=== PATIENT | female | born 1955 | race Caucasian/White ===

== ENCOUNTER 2025-02-18 15:05 | Outpatient (AMB) | payer MEDICARE, BC, SELFPAY ==
--- NOTE | 2025-02-18 15:20 | HO.NEPHOV_ITS ---
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 She is 69 is of age and has been hypertension for over 25 years . She is on [place], labetalol as well as lisinopril. She does not have any hypokalemia or renal dysfunction. She has high BMI and has sleep apnea. She is not known to have any coronary artery disease, congestive heart failure, CVA, carotid stenosis, edema, proteinuria, peripheral arterial disease. She is not very good with low-sodium diet and does not take any nonsteroidal anti-inflammatories. She maintains good hydration. She has history of renal calculus as well as paroxysmal supraventricular tachycardia. Her BP control is better but still not optimal. She has H/O PE & DVT and is on anticoagulation [facility] Medical History (Updated 02/18/25 @ 15:28 by Andrea Land MD) Hypertension Depression Asthma Paroxysmal supraventricular tachycardia Mixed hyperlipidemia DM (diabetes mellitus) type II controlled with renal manifestation JOSÉ ANTONIO (obstructive sleep apnea) Allergic rhinitis Altered sensation of foot Calculus of kidney Fatty liver disease, nonalcoholic Anatomical narrow angle Spasmodic dysphonia Gout of foot Bilateral pulmonary embolism Surgical History Status post hysteroscopic ablation of endometrium History of radial keratotomy H/O eye surgery H/O colonoscopy Hx of cholecystectomy History of ankle surgery Social History (Updated 02/18/25 @ 15:20 by Kathy Mazariegos MA) Alcohol intake: never Patient Tobacco Use Status: Never used Tobacco Review of Systems Const All systems reviewed & are unremarkable except as noted in HPI and below Physical Exam Vital Signs: Last Vital Signs Pulse 69 02/18/25 15:28 BP 156/82 H 02/18/25 15:28 Pulse Ox 95 02/18/25 15:28 Oxygen Delivery Method Room Air 02/18/25 15:28 BMI result Body Mass Index 41.6 Const General: comfortable and no acute distress Orientation/consciousness: patient oriented x3 HEENT Head: Yes normocephalic Mouth: Normal oral and palatal mucosa present Eyes EOM: EOMs intact bilaterally Neck Neck: Yes supple Resp Auscultation: clear to auscultation bilaterally Cardio Jugular venous distension: no JVD Rate: regular rate GI Palpation (GI): Soft to palpation Auscultation: normal bowel sounds General: Yes no CVA tenderness Back/Spine/Pelvis Back: no CVA tenderness Skin General skin exam: no rashes or lesions noted Neuro General: patient oriented x3 and moves all extremities Extrem General: Yes no pedal edema Assessment & Plan Assessment & Plan (1) Hypertension: Code(s): I10 - Essential (primary) hypertension Category: Medical Qualifiers: Hypertension type: primary hypertension Qualified Code(s): I10 - Essential (primary) hypertension Plan Life style modifications and weight loss Low sodium diet ; C/W CPAP for JOSÉ ANTONIO Started Spironolactone 25 mg daily C/W rest of current BP medications for now Will do a 24 hr BP and renal Doppler later Unlikely that she has secondary HTN Will continue optimize medications with evol data F/U labs ordered and answered all question Orders: Orders Protein Creatinine Ratio, Ur 4 Weeks I10 - Essential (primary) hypertension Electrolytes 4 Weeks I10 - Essential (primary) hypertension Blood Urea Nitrogen 4 Weeks I10 - Essential (primary) hypertension Creatinine 4 Weeks I10 - Essential (primary) hypertension Calcium 4 Weeks I10 - Essential (primary) hypertension Coding Level of Care Code New Pt Level 4 (02960) Diagnoses Primary hypertension I10 Hypertension type: primary hypertension
[2025-02-18 15:28] VITALS: BP 156/82; PULSE 69; O2SAT 95; BMI 41.6
--- OUTSIDE RECORDS SUMMARY | 2025-02-18 19:32 | XMS_ITS | Clinical Summary ---
Author Organization [facility] Address [address] [place] [address] Phone Care Team Providers Care Club Director Name Role Phone Clemente Preston MD Primary Care Provider [phone] Allergies Active Allergy Reactions Criticality Noted Date Comments Cyclobenzaprine Diarrhea 04/04/2024 Ibuprofen 12/06/2021 Raises blood pressure Medications Lactobacillus acidophilus (ACIDOPHILUS ORAL) daily as needed. Active aspirin 81 mg EC tablet 1 tablet (81 mg total) 1 (one) time each day. Active calcium citrate-vitamin D3 1,000 mg-10 mcg /30 mL liquid Take by mouth. Active fluticasone propionate (FLONASE) 50 mcg/actuation nasal spray SPRAY 1 SPRAY BY NASAL ROUTE EVERY DAY 08/03/19 23 Active hydrocortisone 1 % topical cream Apply to affected areas twice daily. 06/09/19 23 Active ketoconazole (NIZORAL) 2 % shampoo Active lysine 500 mg tablet L-LYSINE 500 MG OR TABS 1 tab daily Active metFORMIN XR (GLUCOPHAGE-XR) 500 mg 24 hr tablet TAKE 2 TABLETS BY MOUTH DAILY (WITH BREAKFAST). 12/08/19 24 Active nystatin (Nystop) 100,000 unit/gram powder APPLY TWO TIMES A DAY NEEDED FOR RASH 10/31/19 19 Active B complex-vitamin C-folic acid 400 mcg tablet Take by mouth. Active Lacto no.51/B.animalis/i nulin (FORTIFY WOMEN PROBIOTIC ORAL) Active valACYclovir (VALTREX) 1 gram tablet TAKE 2 TABLETS BY MOUTH 2 TIMES DAILY FOR OUTBREAK OR DIRECTED 8 tablet 03/28/20 24 Active fluticasone furoate (Arnuity Ellipta) 100 mcg/actuation blister with device inhaler Inhale 1 puff by mouth 1 (one) time each day. 3 each 3 05/24/19 25 026 Active fluticasone HFA (FLOVENT HFA) 44 mcg/actuation inhalerIndications :Moderate persistent asthma, uncomplicated Inhale 2 puffs by mouth 2 (two) times a day. 10.6 each 3 07/05/19 25 Active citalopram (CeleXA) 40 mg tablet TAKE 1 TABLET BY MOUTH EVERY DAY 90 tablet 1 09/20/19 25 Active gabapentin (NEURONTIN) 300 mg capsuleIndications :Unspecified osteoarthritis, unspecified site Take 1 capsule (300 mg total) by mouth 1 (one) time each day if needed (pain). 90 capsule 1 11/09/19 25 Active lisinopriL (PRINIVIL,ZESTRIL) 20 mg tablet Take 1 tablet (20 mg total) by mouth 1 (one) time each day. 90 each 1 11/09/19 25 Active amLODIPine (NORVASC) 5 mg tablet Take 1 tablet (5 mg total) by mouth 1 (one) time each day. 90 each 1 11/09/19 25 Active pravastatin (PRAVACHOL) 40 mg tabletIndications: Mixed hyperlipidemia TAKE 1 TABLET BY MOUTH EVERYDAY AT BEDTIME 90 tablet 1 11/16/19 25 Active metFORMIN XR (GLUCOPHAGE-XR) 500 mg 24 hr tabletIndications: Type 2 diabetes mellitus with other diabetic kidney complication ([facility] V24, [facility] V28) TAKE 2 TABLETS BY MOUTH DAILY (WITH BREAKFAST). 180 tablet 2 12/13/19 25 Active labetaloL (NORMODYNE) 200 mg tablet Take 1 tablet (200 mg total) by mouth 2 (two) times a day. 60 each 3 01/09/20 25 Active mirtazapine (REMERON) 30 mg tablet Take 1 tablet (30 mg total) by mouth at bedtime. 90 tablet 1 01/10/20 25 Active Eliquis 5 mg tablet TAKE 1 TABLET BY MOUTH TWICE A DAY 60 tablet 3 02/01/20 25 Active tirzepatide (MOUNJARO) 7.5 mg/0.5 mL injectionIndicatio ns:Controlled type 2 diabetes mellitus with microalbuminuria, without long-term current use of insulin ([facility] V24, [facility] V28) Inject 0.5 mL (7.5 mg total) under the skin every 7 (seven) days. 2 mL 1 02/01/20 Active apixaban (Eliquis) 5 mg tablet Take 1 tablet (5 mg total) by mouth 2 (two) times a day. 60 tablet 3 06/03/19 25 025 Discontinued Mounjaro 5 mg/0.5 mL injectionIndicatio ns:Controlled type 2 diabetes mellitus with microalbuminuria, without long-term current use of insulin ([facility] V24, [facility] V28) INJECT 0.5 ML (5 MG TOTAL) UNDER THE SKIN EVERY 7 DAYS 2 mL 1 12/27/19 25 025 Discontinued Active Problems Problem Noted Date Diagnosed Date Bilateral pulmonary embolism ([facility] V24, [facility] V28) 04/18/2024 Gout of foot 12/06/2021 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 Completed speech therapy Anatomical narrow angle 07/31/2017 Fatty liver disease, nonalcoholic 11/29/2016 Calculus of kidney 09/05/2015 Overview (03/11/2024): Seen on u/s Altered sensation of foot 11/19/2013 Allergic rhinitis 05/25/2011 Overview (03/11/2024): Ref ENT for lesion nasal, appt not yet scheduled by pt JOSÉ ANTONIO (obstructive sleep apnea) 04/05/2011 Overview (03/11/2024): Moderate on sleep study 2010, on CPAP, sees Dr Silva Polysomnogram: RBMG 03-01-11 SE 83% SM 85% RDI 18(AHI 10.6) REM RDI 56, REM AHI 39. supine RDI 56 lateral RDI 11.9 PLMAI~10 Optimal CPAP Polysomnogram with CPAP: Date 05/09/2011 SE 93% SM 93 % RDI 0.7 (AHI 0.4), PLMAI ~1 with elimination of respiratory events and snoring; + improvement in JOSÉ ANTONIO. DM (diabetes mellitus) type II controlled with renal manifestation ([facility] V24, [facility] V28) 05/27/2009 Mixed hyperlipidemia 12/01/2007 Paroxysmal supraventricular tachycardia ([facility] V24) 10/01/2005 Overview (03/11/2024): 1997 Asthma 04/19/2005 Depression 04/19/2005 Hypertension 04/19/2005 Resolved Problems Problem Noted Date Diagnosed Date Resolved Date Hypoxic respiratory failure ([facility] V24, [facility] V28) 04/18/2024 04/20/2024 Assessment & Plan (04/18/2024 3:12 PM EST): hypertension Encounters Date Type Department Care Team Description 01/31/2025 11:00 AM EDT Office Visit Endocrinology [address] [phone] Sarah Stevens MD Controlled type 2 diabetes mellitus with microalbuminuria, without long-term current use of insulin ([facility] V24, [facility] V28) (Primary Dx) 01/21/2025 Results Follow-Up Internal Medicine - [address] [address] Aleks Penn [place] 01/08/2025 2:45 PM EDT Office Visit Internal Medicine [address] [address] Clemente Preston MD Primary hypertension (Primary Dx); PE (pulmonary thromboembolism) ([facility] V24, [facility] V28); Controlled type 2 diabetes mellitus with microalbuminuria, without long-term current use of insulin ([facility] V24, [facility] V28) 01/08/2025 11:11 AM EDT - 01/08/2025 11:59 PM EDT Hospital Encounter CT Scan [address] [place] [address] Lung nodules Discharge Disposition: Home or Self Care 12/30/2024 3:15 PM EDT Office Visit Hematology Oncology [address] [place] [phone] Regine Dunn MD Bilateral pulmonary embolism ([facility] V24, [facility] V28) (Primary Dx); Paroxysmal supraventricular tachycardia ([facility] V24) 12/24/2024 Telephone Pulmonology - [place] [address] [facility] [address] [place] [address] [place] 12/20/2024 12:45 PM EDT Lab Draw Station - [address] [address] Obstructive sleep apnea (adult) (pediatric) (Primary Dx); Fatigue; Normocytic anemia; Unspecified osteoarthritis, unspecified site; Primary hypertension; Mixed hyperlipidemia; Bilateral pulmonary embolism ([facility] V24, [facility] V28) 12/19/2024 9:29 AM EDT - 12/19/2024 11:59 PM EDT Hospital [facility] at [address] [place] [phone] Encounter for screening mammogram for breast cancer Discharge Disposition: Home or Self Care from Last 3 Months Immunizations Immunization Administration Dates Next Due COVID-19 (Pfizer/Comirnaty) 12yo and older 01/09/2025 COVID-19 Seasonal (Novavax) 12yo and older 01/12/2022 H1N1 Inj Preservative Free 05/27/2009 Hepatitis B (Xruoyub-S-Ysphd , Recombivax HB-Adult) 19yo and older 03/12/2012,10/17/2011,09/08/2011 Influenza Quadravalent, MDCK , 0.5ml, preservative free (Flucelvax) 6mo and older 02/19/2019,01/17/2018 Influenza Quadravalent, MDCK , 0.5ml, with preservative (Flucelvax) 6mo and older 01/03/2020,03/02/2017 Influenza trivalent, 0.5mL ( Fluad) 65yo and older 01/15/2024,01/10/2023,02/19/2021 Influenza trivalent, 0.5mL, preservative free (Fluarix; FluLaval; Fluzone) ages 6mo and older (Afluria) 3 years and older 01/12/2022,03/19/2008 Influenza trivalent, with pr eservative (Fluzone; Afluria) 6mo and older 02/17/2016,02/27/2015,02/25/2014,02/18,03/13/2012,03/08/2011,05/13/2010 ,12/24/2008,03/11/2005 Influenza, Unspecified 03/11/2022 Pfizer (ages 12 & older) Biv alent, COVID-19 01/12/2022 Pfizer SARS-CoV-2 COVID-19, mRNA, LNP-S, preservative free 03/21/2023,01/12/2022,02/19/2021,08/02,07/12/2020 Pneumococcal conjugate 20 va lent (Prevnar 20, PCV 20) 2mo and older 03/21/2023 Pneumococcal polysaccharide 23 valent (Pneumovax 23) 2yo and older 02/17/2016,01/29/2004 RSV, bivalent, protein subun it RSVpreF, 0.5mL, Preservative Free (ABRYSVO) 50yo and older or 32 through 36 wks of 03/21/2023 Respiratory syncytial virus (RSV), unspecified 03/21/2023 Td Tetanus diptheria (Tdvax) 7yo and older 11/19/2018 Tdap Tetanus diptheria acell ular pertussis (Boostrix; Adacel) 7yo and older 11/03/2008 Varicella live (Varivax) 12m o and older 05/12/2000 Zoster recombinant (Shingrix ) 19yo and older 06/23/2018,11/22/2017 Surgical History Surgery Date Site/Laterality Comments VAGINAL DELIVERY PROCEDURE: GA VAGINAL DELIVERY ONLY CHOLECYSTECTOMY 08/2005 PROCEDURE: HISTORICAL CHOLECYSTECTOMY ANKLE SURGERY 03/2005 PROCEDURE: HISTORICAL ANKLE SURGERY; COMMENT: fracture, right OTHER SURGICAL HISTORY PROCEDURE: HISTORY OTHER; COMMENT: D & C OTHER SURGICAL HISTORY 2011 PROCEDURE: GA HYSTEROSCOPY ENDOMETRIAL ABLATION OTHER SURGICAL HISTORY PROCEDURE: GA RADIAL KERATOTOMY COLONOSCOPY 03/31/2008 PROCEDURE: HISTORICAL COLONOSCOPY; COMMENT: Up to cecum, good preparation, mild diverticulosis, normal colon exam COLONOSCOPY 11/21/2018 PROCEDURE: HISTORICAL COLONOSCOPY; COMMENT: Minimal diverticulosis, otherwise negative examination. EYE SURGERY 2017 Bilateral PROCEDURE: GA TRABECULOPLASTY BY LASER SURGERY Medical History Medical History Date Comments Obesity, unspecified DX:Obesity, unspecified Nonspecific (abnormal) findi ngs on radiological and other examination of skull and head 1991 DX:Nonspecific (abnormal) fi ndings on radiological and other examination of skull and head; COMMENT: Pituitary MRI--followups unremarkable Depressive disorder, not els ewhere classified DX:Depressive disorder, not elsewhere classified Unspecified asthma(493.90) DX:Un specified asthma(493.90) Essential hypertension, benign D X:Essential hypertension, benign Diabetes mellitus type 2, co ntrolled, with complications (CMS/HCC V24, CMS/HCC V28) DX:Diabetes mellitus type 2, controlled, with complications ([facility]) Anatomical narrow angle of both eyes DX:Anatomical narrow angle of both eyes; COMMENT: Dr. Alston Family History * Patient is adopted Medical History Relation Name Comments No Known Problems Aunt Other: hidradenitis Daughter No Known Problems Father pt. is adopted. No Known Problems Maternal Grandfather No Known Problems Maternal Grandmother No Known Problems Mother pt. is adopted. No Known Problems Other No Known Problems Paternal Grandfather No Known Problems Paternal Grandmother No Known Problems Uncle Blindness Neg Hx Cataracts Neg Hx Glaucoma Neg Hx Macular degeneration Neg Hx Strabismus Neg Hx Relation Name Status Comments Aunt Daughter Alive Father pt. is adopted. Maternal Grandfather Maternal Grandmother Mother pt. is adopted. Other Paternal Grandfather Paternal Grandmother Uncle Social History Tobacco Use Types Packs/Day Years Used Date Smoking Tobacco: Never Smokeless Tobacco: Never Alcohol Use Standard Drinks/Week Comments Not Currently 0 (1 standard drink = 0.6 oz pur e alcohol) Housing Instability Answer Date Recorde d Are you worried that in the next 2 months you may not have stable housing? No 04/19/2024 Food Access & Nutrition Answer Date Rec orded Do you have access to a vari ety of food including fruits and vegetables? Yes 04/19/2024 Access to Healthcare Answer Date Record ed Within the last 3 months, june w many times did you visit the emergency department for your medical care? 0 04/19/2024 Health Literacy Answer Date Recorded How often do you need to hav e someone help you when you read instructions, pamphlets, or other written material from your doctor or pharmacy? Never 04/19/2024 Caregiver: How often do you need to have someone help you when you read instructions, pamphlets, or other written material from your doctor or pharmacy? Not on file 04/19/2024 Financial Risk Answer Date Recorded How hard is it for you to pa y for the very basics like food, housing, medical care, and air conditioning / heating? Somewhat hard 04/19/2024 Transportation Answer Date Recorded Has the lack of transportati on kept you from meetings, work, or from getting things needed for daily living? No Has the lack of transportati on kept you from medical appointments or from getting medications? No 04/19/2024 Social Isolation Answer Date Recorded How often do you feel lonely or isolated from th ose around you? Never 04/19/2024 Food Risk Answer Date Recorded Within the past 12 months we worried whether our food would run out before we got money to buy more. Never true 04/19/2024 Within the past 12 months th e food we bought just didn't last and we didn't have money to get more. Never true 04/19/2024 Dependent Care Answer Date Recorded Do you need help finding or paying for care for your loved ones. For example, child care counselor or elderly care for an older adult? No 04/19/2024 Education Answer Date Recorded Do you think completing more education or training, like finishing a GED, going to college, or learning a trade, would be helpful for you? No 04/19/2024 Employment and Income Answer Date Recor ded During the last four weeks, have you been actively looking for work? No 04/19/2024 Living Situation Answer Date Recorded What is your living situation? Unrecognized valu e 04/19/2024 Interpersonal Safety Answer Date Record ed Physical Abuse Unrecognized value 04/19/2024 Verbal Abuse Unrecognized value 04/19/2024 Comments No Sex and Gender Information Value Date Recorded Sex Assigned at Female 05/31/2024 1:01 PM EST Legal Sex Female 6:08 PM EST Gender Identity Female 05/31/2024 1:01 PM EST Sexual Orientation Straight 05/31/2024 1: 01 PM EST Obstetrics History Para Term AB IAB SAB Ectopic Multiple Livin g Live Births 1 Last Filed Vital Signs Vital Sign Reading Time Taken Comments Blood Pressure 159/71 01/31/2025 11:18 AM EDT Pulse 66 01/31/2025 11:18 AM EDT Temperature 36.1 C (97 F) 01/08/2025 2:44 PM EDT Respiratory Rate 16 01/31/2025 11:08 AM EDT Oxygen Saturation 96% 01/08/2025 2:44 PM EDT Inhaled Oxygen Concentration - - Weight 147 kg (324 lb) 01/31/2025 11:08 AM EDT Height 185.4 cm (6' 1 ) 01/31/2025 11:08 AM EDT Body Mass Index 42.75 01/31/2025 11:08 AM EDT Plan of Treatment Upcoming Encounters Date Type Department Care Team (Late st Contact Info) Description 03/11/2025 10:30 AM EST Office Visit Pulmonology - [place] [address] [facility] [address] [place] [phone] Meche Verma MD [address] [place] [address] 03/14/2025 11:30 AM EST Office Visit Endocrinology - [place] [address] [place] [address] Kylah Barnett MD [address] [place] [address] 03/27/2025 3:00 PM EST Office Visit [facility] [address] [facility] [address] [place] [phone] Hill Box MD [address] [place] [address] Dr Dietrich [address] [place] [phone] 05/13/2025 11:00 AM EST Office Visit Internal Medicine - [place] [address] [facility] [address] [place] [phone] Clemente Preston MD [address] [place] [phone] 09/29/2025 2:30 PM EDT Office Visit Hematology Oncology [address] [place] [address] Regine Briseno MD [address] [place] [address] 12/22/2025 9:45 AM EDT [facility]ointment [facility] [address] [place] [address] Health Maintenance Due Date Last Done Comments Medicare Annual Wellness Visit 05/02/2024 05/02/2023 Social Influencers of Health Screening 04/19/2025 04/19/2024 Falls Risk Assessment 04/21/2025 04/21/2024, 024 Diabetes: Blood Sugar Control Test (HGBA1C) 05/03/2025 10/31/2024, 06/14/2024, 01/15/2024, Additional history exists Diabetes: Annual Urine Albumin-Creatinine Ratio (uACR) 10/31/2025 10/31/2024, 01/15/2024 Diabetes: Annual Foot Exam 10/31/2025 10/31/2024, Diabetes: Annual Retina Eye Exam 11/22/2025 11/22/2024, 10/31/2023 Diabetes: Annual GFR (Glomerular Filtration Rate) 12/20/2025 12/20/2024, 10/31/2024, 06/14/2024, Additional history exists Hypertension/CHF/CAD Annual BMP Blood Test 12/20/2025 12/20/2024, 10/31/2024, 06/14/2024, Additional history exists Breast Cancer Screening 12/19/2026 12/20/19 25, 12/20/2023, 12/15/2022, Additional history exists Colorectal Cancer Screening: Colonoscopy 11/21/2028 11/21/2018, 03/31/2008 Cholesterol Screening (Lipid Panel) 12/20/2029 12/20/2024, 06/14/2024, 09/12/2023, Additional history exists Osteoporosis Screening (Bone Density Screening) 03/14/2033 03/14/2023 DTaP,Tdap,and Td Vaccines (4 - Td or Tdap) 01/09/2035 01/09/2025, 11/19/2018, 11/03/2008 Varicella Vaccines Aged Out 05/12/2000 No longer eligible based on patient's age to complete this topic Hepatitis B Vaccines Completed 03/12/2012, 10/17/2011, 09/08/2011 Hepatitis C Screening Completed 06/19/2012 Zoster Vaccines Completed 06/23/2018, 08/0 04/2017, 05/12/2000 Pneumococcal Vaccine: 50+ Years Completed 03/21/2023, 02/17/2016, 01/29/2004 RSV Immunization Adult Patients Completed 03/21/2023, 03/21/2023 RSV Immunization Patients Under 20 months Aged Out 03/21/2023 No longer eligible based on patient's age to complete this topic Depression Screening Completed 01/07/2025, 05/02/19 24 COVID-19 Vaccine Completed 01/09/2025, , 01/26/2024, Additional history exists Influenza Vaccine Completed 01/09/2025, , 01/10/2023, Additional history exists HIB Vaccines Aged Out No longer eligi ble based on patient's age to complete this topic HPV Vaccines Aged Out No longer eligi ble based on patient's age to complete this topic Hepatitis A Vaccines Aged Out No long er eligible based on patient's age to complete this topic IPV Vaccines Aged Out No longer eligi ble based on patient's age to complete this topic MMR Vaccines Aged Out No longer eligi ble based on patient's age to complete this topic Meningococcal ACWY Vaccine Aged Out N o longer eligible based on patient's age to complete this topic Meningococcal B Vaccine Aged Out No l onger eligible based on patient's age to complete this topic Procedures Procedure Name Priority Date/Time Associated Diagnosis Comments POC GLUCOSE Routine 02/05/2025 9:10 AM EDT Controlled type 2 diabetes mellitus with microalbuminuria, without long-term current use of insulin ([facility] V24, [facility] V28) CT CHEST WO CONTRAST Routine 01/08/2025 11:31 AM EDT Lung nodules CBC WITH AUTO DIFFERENTIAL Routine 12/20/2024 12:43 PM EDT Normocytic anemia THYROID STIMULATING HORMONE WITH REFLEX TO FREE T4 AND FREE T3 Routine 12/20/2024 12:43 PM EDT Obstructive sleep apnea (adult) (pediatric) Fatigue LIPID PANEL WITH REFLEX TO DIRECT LDL Routine 12/20/2024 12:43 PM EDT Unspecified osteoarthritis, unspecified site Primary hypertension Mixed hyperlipidemia Bilateral pulmonary embolism (CMS/HCC V24, CMS/HCC V28) COMPREHENSIVE METABOLIC PANEL Routine 12/20/2024 12:43 PM EDT Unspecified osteoarthritis, unspecified site Primary hypertension Mixed hyperlipidemia Bilateral pulmonary embolism (CMS/HCC V24, CMS/HCC V28) CBC AND DIFFERENTIAL Routine 12/20/2024 12:43 PM EDT Normocytic anemia MG MAMMO DIGITAL SCREENING W NIKHIL BILAT Routine 12/19/2024 9:50 AM EDT Encounter for screening mammogram for breast cancer MICROALBUMIN CREATININE URINE RATIO Routine 10/31/2024 9:53 AM EDT Controlled type 2 diabetes mellitus with microalbuminuria, without long-term current use of insulin (CMS/HCC V24, CMS/HCC V28) HEMOGLOBIN A1C Routine 10/31/2024 9:26 AM EDT Controlled type 2 diabetes mellitus with microalbuminuria, without long-term current use of insulin (CMS/HCC V24, CMS/HCC V28) DIABETES EYE EXAM Routine 10/31/2023 DIABETES FOOT EXAM Routine 05/12/2023 DEPRESSION SCREENING Routine 05/02/2023 FALLS RISK ASSESSMENT Routine 05/02/2023 DXA BONE DENSITY STUDY 1+ SITS AXIAL SKEL Routine 03/14/2023 1:36 PM EST Encounter for screening for osteoporosis COLONOSCOPY Routine 11/21/2018 HEPATITIS C SCREENING Routine 06/19/2012 from Last 3 Months or Most Recently Relevant to Health Maintenance Results * POC glucose manually resulted (02/05/2025 9:10 AM EDT) Glucose POC 99 mg/dL Blood Capillary blood specimen / Unknown 02/05/2025 9:10 AM EDT Sarah Stevens MD POINT OF CARE TEST ENTER/EDIT OR DERABLES Final Result * CT Chest wo Contrast (01/08/2025 11:31 AM EDT) Anatomical Region Laterality Modality Body Computed Tomogra phy 01/14/2025 10:5 8 AM EDT Impressions 01/14/2025 11:28 AM EDT No change in the centrally calcified nodule in the right lower lobe. Stability since 2015. No new suspicious abnormality. Evidence of prior granulomatous disease -------- FINAL REPORT -------- Dictated By: Reji Barillas Dictated Date: 01/14/2025 10:58 ET Assigned Physician: Reji Barillas Reviewed and Electronically Signed By: Reji Barillas Signed Date: 01/14/2025 11:28 ET Workstation ID: [id number] Transcribed By: Self Edit Transcribed Date: 01/14/2025 10:58 ET Narrative 01/14/2025 11:28 AM EDT EXAMINATION: CT CHEST WITHOUT CONTRAST CLINICAL INFORMATION: Abnormal x-ray. Lung nodule. COMPARISON: Portions of previous 07/08/24 TECHNIQUE: Multidetector CT. Examination of the chest. Examination of the chest without IV contrast. Reformatting in the coronal and sagittal planes. DLP: 1305 mGy-cm Dose optimization was performed including the use of low-dose iterative reconstruction technique with automatic exposure control based on patient size. Type of contrast: None Volume of IV contrast: None Volume of contrast discarded: 0 mL FINDINGS: LUNG: No suspicious abnormality of the trachea or mainstem bronchi. Centrally calcified nodule in the posterior right lower lobe 01/08/25-1.7 cm 07/08/24-1.7 cm 09/28/15-1.7 cm No new mass or suspicious nodule. There are minor peripheral reticular opacities but no honeycomb formation. MEDIASTINUM: There are calcified mediastinal and right hilar lymph nodes consistent with prior granulomatous disease. No change in the mediastinum or tom. CARDIAC: The heart is not enlarged. No pericardial fluid or thickening CORONARY CALCIFICATION: There are mild coronary calcifications. VASCULAR: There is no thoracic aortic aneurysm. The main pulmonary artery is normal caliber PLEURA: There is no pleural fluid or pneumothorax AXILLA/CHEST WALL: There are no enlarged axillary lymph nodes. No chest wall mass demonstrated VISUALIZED UPPER ABDOMEN: No suspicious abnormality on limited assessment of the visualized upper abdomen. Unchanged low attenuating left adrenal nodule. Evidence of previous granulomatous disease in the liver and spleen. MUSCULOSKELETAL: No new suspicious focal bony lesion. No change in tiny sclerotic focus left scapula. No change in tiny sclerotic focus in lateral upper right rib. Extensive osteophytes in the spine Procedure Note Reji Barillas MD - 01/14/2025 EXAMINATION: CT CHEST WITHOUT CONTRAST CLINICAL INFORMATION: Abnormal x-ray. Lung nodule. COMPARISON: Portions of previous 07/08/24 TECHNIQUE: Multidetector CT. Examination of the chest. Examination of the chest without IV contrast. Reformatting in the coronal and sagittal planes. DLP: 1305 mGy-cm Dose optimization was performed including the use of low-dose iterativereconstruction technique with automatic exposure control based on patientsize. Type of contrast: None Volume of IV contrast: None Volume of contrast discarded: 0 mL FINDINGS: LUNG: No suspicious abnormality of the trachea or mainstem bronchi. Centrally calcified nodule in the posterior right lower lobe 01/08/25-1.7 cm 07/08/24-1.7 cm 09/28/15-1.7 cm No new mass or suspicious nodule. There are minor peripheral reticularopacities but no honeycomb formation. MEDIASTINUM: There are calcified mediastinal and right hilar lymph nodesconsistent with prior granulomatous disease. No change in the mediastinumor tom. CARDIAC: The heart is not enlarged. No pericardial fluid or thickening CORONARY CALCIFICATION: There are mild coronary calcifications. VASCULAR: There is no thoracic aortic aneurysm. The main pulmonary arteryis normal caliber PLEURA: There is no pleural fluid or pneumothorax AXILLA/CHEST WALL: There are no enlarged axillary lymph nodes. No chestwall mass demonstrated VISUALIZED UPPER ABDOMEN: No suspicious abnormality on limited assessmentof the visualized upper abdomen. Unchanged low attenuating left adrenalnodule. Evidence of previous granulomatous disease in the liver andspleen. MUSCULOSKELETAL: No new suspicious focal bony lesion. No change in tinysclerotic focus left scapula. No change in tiny sclerotic focus in lateralupper right rib. Extensive osteophytes in the spine IMPRESSION: No change in the centrally calcified nodule in the right lower lobe.Stability since 2016. No new suspicious abnormality. Evidence of prior granulomatous disease -------- FINAL REPORT -------- Dictated By: Reji Barillas Dictated Date: 01/14/2025 10:58 ET Assigned Physician: Reji Barillas Reviewed and Electronically Signed By: Reji Barillas Signed Date: 01/14/2025 11:28 ET Workstation ID: [id number] Transcribed By: Self Edit Transcribed Date: 01/14/2025 10:58 ET Meche Verma MD IMG CT PROCEDURES Final Result * Thyroid stimulating hormone with reflex to free t4 and free t3 (12/20/2024 12:43 PM EDT) [facility] TSH 2.25 0.40 - 4.00 mcIU/mL LAB CHEMISTRY METHOD 12/20/2024 5:[address] [facility] Blood Venous blood specimen / Unknown Venipuncture / Unknown 12/20/2024 12:43 PM EDT 12/20/2024 12:43 PM EDT Meche Verma MD LAB BLOOD ORDERABLES Final Resul t [facility] [address] [place] [address], [place] [phone] * Lipid panel with reflex to direct LDL (12/20/2024 12:43 PM EDT) [facility] Cholesterol 131 0 - 200 mg/dL LAB CHEMISTRY METHOD 12/20/2024 4:[address] [facility] Triglycerides 77 0 - 150 mg/dL LAB CHEMISTRY METHOD 12/20/2024 4:[address] [facility] HDL 59 >=40 mg/dL LAB CHEMISTRY METHOD 12/20/2024 4:[address] [facility] LDL Calculated 57 0 - 100 mg/dL LAB CHEMISTRY METHOD 12/20/2024 4:[address] [facility] Comment:Estimated LDL Calcul ated using equation: Total cholesterol - HDL cholesterol - (Triglycerides/5) VLDL Cholesterol Eric 15.4 mg/dL LAB CHEMISTRY METHOD 12/20/2024 4:[address] [facility] Non HDL Chol. (LDL+VLDL) 72 <145 mg/dL LAB CHEMISTRY METHOD 12/20/2024 4:[address] [facility] Chol/HDL Ratio 2.2 0.0 - 4.4 LAB CHEMISTRY METHOD 12/20/2024 4:[address] [facility] Blood Venous blood specimen / Unknown Venipuncture / Unknown 12/20/2024 12:43 PM EDT 12/20/2024 12:43 PM EDT us Clemente Preston MD LAB BLOOD ORDERABLES Final Resul t [facility] [address] [place] [address], * (ABNORMAL) CBC auto differential (12/20/2024 12:43 PM EDT) WBC 6.5 4.8 - 10.8 K/mcL LAB HEMETOLOGY METHOD 12/20/2024 2:[address] [facility] RBC 4.90(H) 3.80 - 4.80 M/mcL LAB HEMETOLOGY METHOD 12/20/2024 2:[address] [facility] Hemoglobin 14.1 11.5 - 16.0 g/dL LAB [facility]EMETOLOGY [facility] Hematocrit 43.5 35.0 - 47.0 % LAB HEMETOLOGY METHOD 12[facility]20[facility]2024 [facility] MCV 89.0 79.0 - 98.0 FL LAB HEMETOLOGY METHOD 12/20/2024 2:[facility] MCH 28.8 27.0 - 32.0 pcg LAB HEMETOLOGY METHOD 12/20/2024 2:[facility] MCHC 32.4 32.0 - 37.0 g/dL LAB HEMETOLOGY METHOD 12/20/2024 2:[facility] RDW 14.0 11.0 - 15.0 % LAB HEMETOLOGY METHOD 12/20/2024 2:[facility] Platelets 264 130 - 400 K/mcL LAB HEMETOLOGY METHOD 12/20/2024 2:01 PM [facility] MPV 10.6 7.0 - 11.0 FL LAB HEMETOLOGY METHOD 12/20/2024 2:[facility] NRBC 0.0 <1.0 % LAB HEMETOLOGY METHOD 12/20/2024 2[facility] NRBC Absolute 0.00 <0.10 K/mcL LAB HEMETOLOGY METHOD 12/20/2024 2:01 PM [facility] Neutrophils Relative 65.7 % LAB HEMETOLOGY METHOD 12/20/2024 2:01 [facility] Lymphocytes Relative 24.4 % LAB HEMETOLOGY METHOD 12/20/2024 2:01 PM [facility] Monocytes Relative 6.8 % LAB HEMETOLOGY METHOD 12/20/2024 2:[address] [facility] Eosinophils Relative 1.8 % LAB HEMETOLOGY METHOD 12/20/2024 2:[address] [facility] Basophils Relative 0.8 % LAB HEMETOLOGY METHOD 12/20/2024 2:[address] [facility] Immature Granulocytes Relative 0.5 % LAB HEMETOLOGY METHOD 12/20/2024 2:[address] [facility] Neutrophils Absolute 4.28 1.50 - 7.00 K/mcL LAB HEMETOLOGY METHOD 12/20/2024 2:[address] [facility] Lymphocytes Absolute 1.59 1.00 - 5.00 K/mcL LAB HEMETOLOGY METHOD 12/20/2024 2:[address] [facility] Monocytes Absolute 0.44 0.20 - 1.00 K/mcL LAB HEMETOLOGY METHOD 12/20/2024 2:[address] [facility] Eosinophils Absolute 0.12 0.00 - 0.50 K/mcL LAB HEMETOLOGY METHOD 12/20/2024 2:[address] [facility] Basophils Absolute 0.05 0.00 - 0.20 K/mcL LAB HEMETOLOGY METHOD 12/20/2024 2:[address] [facility] Immature Granulocytes Absolute 0.03 0.00 - 0.03 K/mcL LAB HEMETOLOGY METHOD 12/20/2024 2:[address] [facility] Blood Venous blood specimen / Unknown Venipuncture / Unknown 12/20/2024 12:43 PM EDT 12/20/2024 12:43 PM EDT us Subramony Suzanna GUTIERRES LAB BLOOD ORDERABLE S Final Result [facility] [address] [place] [address], * (ABNORMAL) Comprehensive metabolic panel (12/20/2024 12:43 PM EDT) Sodium 143 133 - 145 mmol/L LAB CHEMISTRY METHOD 12/20/2024 4:47 PM [facility] Potassium 3.9 3.5 - 5.5 mmol/L LAB CHEMISTRY METHOD 12/20/2024 4:47 PM [facility] Chloride 109 96 - 110 mmol/L LAB CHEMISTRY METHOD 12/20/2024 4:47 PM [facility] CO2 28 21 - 32 mmol/L LAB CHEMISTRY METHOD 12/20/2024 4:47 PM [facility] Anion Gap 6 3 - 11 LAB CHEMISTRY METHOD 12/20/2024 4:47 PM [facility] Glucose 103(H) 70 - 100 mg/dL LAB CHEMISTRY METHOD 12/20/2024 4:47 PM [facility] BUN 12 5 - 25 mg/dL LAB CHEMISTRY METHOD 12/20/2024 4:47 PM [facility] Creatinine 0.81 0.50 - 1.10 mg/dL LAB CHEMISTRY METHOD 12/20/2024 4:47 PM [facility] eGFR 80 >=60 mL/min/1. 73m2 LAB CHEMISTRY METHOD 12/20/2024 4:47 PM [facility] Comment:Calculation based on the Chronic Kidney Disease Epidemiology Collaboration (CKD-EPI) equation refit without adjustment for race. BUN/Creatinine Ratio 14.8 LAB CHEMISTRY METHOD 12/20/2024 4:47 PM [facility] Calcium 9.4 8.5 - 10.5 mg/dL LAB CHEMISTRY METHOD 12/20/2024 4:47 PM [facility] AST (SGOT) 21 10 - 42 unit/L LAB CHEMISTRY METHOD 12/20/2024 4:47 PM [facility] ALT (SGPT) 22 10 - 60 unit/L LAB CHEMISTRY METHOD 12/20/2024 4:[address] [facility] Alkaline Phosphatase 114 42 - 121 unit/L LAB CHEMISTRY METHOD 12/20/2024 4:[address] [facility] Total Protein 6.9 6.0 - 8.0 g/dL LAB CHEMISTRY METHOD 12/20/2024 4:[address] [facility] Albumin 4.1 3.2 - 5.0 g/dL LAB CHEMISTRY METHOD 12/20/2024 4:[address] [facility] Total Bilirubin 0.6 0.0 - 1.4 mg/dL LAB CHEMISTRY METHOD 12/20/2024 4:[address] [facility] Blood Venous blood specimen / Unknown Venipuncture / Unknown 12/20/2024 12:43 PM EDT 12/20/2024 12:43 PM EDT us Clemente Preston MD LAB BLOOD ORDERABLES Final Resul t [facility] [address] [place] [address], [place] [phone] * MG Mammo Digital Screening w Nikhil bilat (12/19/2024 9:50 AM EDT) Anatomical Region Laterality Modality Breast Bilateral Mammography 12/19/2024 10:1 1 AM EDT Impressions 12/19/2024 11:52 AM EDT No mammographic evidence of malignancy. No suspicious interval change. A negative mammogram in the presence of a clinically suspicious palpable abnormality does not preclude the possibility of malignancy or alter the indications for biopsy. ASSESSMENT: BI-RADS 2: BENIGN RECOMMENDATION(S): 1: Routine screening mammogram BILATERAL in 1 year. [facility]amm[facility] [address] [place], [address] -------- FINAL REPORT -------- Dictated By: Reji Barillas Dictated Date: 12/19/2024 10:11 ET Assigned Physician: Reji Barillas Reviewed and Electronically Signed By: Reji Barillas Signed Date: 12/19/2024 11:52 ET Workstation ID: [id number] Transcribed By: Self Edit Transcribed Date: 12/19/2024 10:12 ET Narrative 12/19/2024 11:52 AM EDT EXAM: SCREENING MAMMOGRAPHY, BILATERAL HISTORY: SCREENING. No additional history. COMPARISON: 12/18/23, 12/15/22, 12/13/21, 12/08/20 TECHNIQUE: Synthesized CC and MLO projections of each breast. Tomosynthesis of each breast in the CC and MLO projections. ADDITIONAL IMAGING: None Computer-aided detection was employed with the [employer] AI 3-D. TISSUE DENSITY: There are scattered areas of fibroglandular density. (BI-RADS category B) FINDINGS: RIGHT BREAST: No suspicious mass. No suspicious calcification. No distortion. No additional suspicious right breast findings LEFT BREAST: No suspicious mass. No suspicious calcification. No distortion. A vague low density 1.0 cm focal asymmetry in the 3 o'clock position 9 cm from the left nipple appears unchanged when compared to remote studies. No additional suspicious left breast findings Procedure Note Reji Barillas MD - 12/19/2024 EXAM: SCREENING MAMMOGRAPHY, BILATERAL HISTORY: SCREENING. No additional history. COMPARISON: 12/18/23, 12/15/22, 12/13/21, 12/08/20 TECHNIQUE: Synthesized CC and MLO projections of each breast.Tomosynthesis of each breast in the CC and MLO projections. ADDITIONAL IMAGING: None Computer-aided detection was employed with the [employer] 3-D. TISSUE DENSITY: There are scattered areas of fibroglandular density.(BI-RADS category B) FINDINGS: RIGHT BREAST: No suspicious mass. No suspicious calcification. No distortion. Noadditional suspicious right breast findings LEFT BREAST: No suspicious mass. No suspicious calcification. No distortion. A vague low density 1.0 cm focal asymmetry in the 3 o'clock position 9 cmfrom the left nipple appears unchanged when compared to remote studies. No additional suspicious left breast findings IMPRESSION: No mammographic evidence of malignancy. No suspicious interval change. A negative mammogram in the presence of a clinically suspicious palpableabnormality does not preclude the possibility of malignancy or alter theindications for biopsy. ASSESSMENT: BI-RADS 2: BENIGN RECOMMENDATION(S): 1: Routine screening mammogram BILATERAL in 1 year. Mamm[facility] location: [facility] [address] [place], [address] -------- FINAL REPORT -------- Dictated By: Reji Barillas Dictated Date: 12/19/2024 10:11 ET Assigned Physician: Reji Barillas Reviewed and Electronically Signed By: Reji Barillas Signed Date: 12/19/2024 11:52 ET Workstation ID: [id number] Transcribed By: Self Edit Transcribed Date: 12/19/2024 10:12 ET us Self Referral Sppl IMG BI PROCEDURES Final Resul t * (ABNORMAL) Microalbumin creatinine urine ratio (10/31/2024 9:53 AM EDT) Creatinine, Urine 237.0 mg/dL LAB CHEMISTRY METHOD 10/31/2024 1:[address] [facility] Microalb, Ur 210.0(H) 0.0 - 29.0 mg/L LAB CHEMISTRY METHOD 10/31/2024 1:[address] [facility] Microalb/Crea t Ratio 89(H) <30 mg/g creat LAB CHEMISTRY METHOD 10/31/2024 1:[address] [facility] Urine Urine specimen obtained by clean catch procedure / Unknown Non-blood Collection / Unknown 10/31/2024 9:53 AM EDT 10/31/2024 9:53 AM EDT Sarah Stevens MD LAB URINE ORDERABLES Final Resul t [facility] [address] [place] [address], * Hemoglobin A1c (10/31/2024 9:26 AM EDT) [facility] Hemoglobin A1C 5.9 <6.5 % LAB CHEMISTRY METHOD 10/31/2024 1:[address] [facility] Mean Bld Glu Estim. 123 mg/dL LAB CHEMISTRY METHOD 10/31/2024 1:[address] [facility] Blood Venous blood specimen / Unknown Venipuncture / Unknown 10/31/2024 9:26 AM EDT 10/31/2024 9:26 AM EDT Sarah Stevens MD LAB BLOOD ORDERABLES Final Resul t [facility] [address] [place] [address], * Diabetes Eye Exam (10/31/2023) [facility] Diabetes: Annual Retina Eye Exam Abstracted [facility] Provider HEALTH MAINTENANCE Final Result * Diabetes Foot Exam (05/12/2023) [facility] Diabetes: Annual Foot Exam Abstracted [facility] Provider HEALTH MAINTENANCE Final Result * Falls Risk Assessment (05/02/2023) [facility] Falls Risk Assessment Abstracted [facility] Provider HEALTH MAINTENANCE Final Result * Depression Screening (05/02/2023) [facility] Depression Screening Abstracted [facility] Provider HEALTH MAINTENANCE Final Result * DXA BONE DENSITY STUDY 1+ SITS AXIAL SKEL (03/14/2023 1:36 PM EST) Anatomical Region Laterality Modality Bone Densitometr y 01/10/2023 10:4 7 AM EDT Narrative 03/15/2023 7:34 AM EST BONE DENSITY SCAN (DEXA): FINDINGS: Lumbar Spine L1-L3, L4 excluded T-score is 2.4. (SD relative to 20-29 y/o adult) Z-score is 4.1. (SD relative to age matched peers) This is considered normal by WHO criteria. Left Hip T-score is -1.2. Z-score is 0.3. This is considered osteopenia by WHO criteria. Comparison exam(s): None. IMPRESSION: IMPRESSION: Osteopenia by WHO criteria. This patient has a 16% risk of major osteoporotic fracture and a 1.5% risk of hip fracture over the next 10 years. (World Health Organization Fracture Risk Assessment) [facility] Department of Internal Medicine recommends using National Osteoporosis Foundation (NOF) guidelines in treatment decisions related to osteoporosis. NOF guidelines suggest considering treatment for postmenopausal women and men aged 50 or older presenting with the following: History of hip or vertebral fracture. T-score = -2.5 (DXA) at the femoral neck, total hip, or spine, after appropriate evaluation to exclude secondary causes. Low bone mass (T-score between -1.0 and -2.5 at the femoral neck or spine) AND a 10-year probability of a hip fracture = 3% OR a 10-year probability of a major osteoporosis-related fracture = 20% based on the [place]-adapted WHO algorithm Please note that all treatment decisions require clinical judgment and consideration of individual patient factors, including patient preferences, co-morbidities, previous drug use, risk factors not captured in the FRAX model (e.g., frailty, falls, vitamin D deficiency, increased bone turnover, interval significant decline in bone density) and possible under- or over-estimation of fracture risk by FRAX. Optional alternative screening schedule based on jeannie Dumont., [facility] May 12, 2011 for patients with osteopenia (based on hip BMD T-score) is as follows: * advanced osteopenia (T scores -2.00 to -2.49), BMD testing every year * moderate osteopenia (T scores -1.50 to -1.99), BMD testing every 5 years mild osteopenia or normal BMD (T scores -1.50 and higher), BMD testing every 15 years Procedure Note Araceli Ruth MD - 05/30/2023 BONE DENSITY SCAN (DEXA): FINDINGS: Lumbar Spine L1-L3, L4 excluded T-score is 2.4. (SD relative to 20-29 y/o adult) Z-score is 4.1. (SD relative to age matched peers) This is considered normal by WHO criteria. Left Hip T-score is -1.2. Z-score is 0.3. This is considered osteopenia by WHO criteria. Comparison exam(s): None. IMPRESSION: IMPRESSION: Osteopenia by WHO criteria. This patient has a 16% risk of majorosteoporotic fracture and a 1.5% risk of hip fracture over the next 10 years. (World HealthOrganization Fracture Risk Assessment) The [facility] Department of Internal Medicine recommendsusing National Osteoporosis Foundation (NOF) guidelines in treatment decisions related toosteoporosis. NOF guidelines suggest considering treatment for postmenopausal women and menaged 50 or older presenting with the following: History of hip or vertebral fracture. T-score = -2.5 (DXA) at the femoral neck, total hip, or spine, afterappropriate evaluation to exclude secondary causes. Low bone mass (T-score between -1.0 and -2.5 at the femoral neck or spine)AND a 10-year probability of a hip fracture = 3% OR a 10-year probability of a majorosteoporosis-related fracture = 20% based on the [place]-adapted WHO algorithm Please note that all treatment decisions require clinical judgment andconsideration of individual patient factors, including patient preferences, co- morbidities,previous drug use, risk factors not captured in the FRAX model (e.g., frailty, falls, vitaminD deficiency, increased bone turnover, interval significant decline in bone density) andpossible under- or over-estimation of fracture risk by FRAX. Optional alternative screening schedule based on jeannie Dumont., NEJMJanuary 2011 for patients with osteopenia (based on hip BMD T-score) is as follows: * advanced osteopenia (T scores -2.00 to -2.49), BMD testing every year * moderate osteopenia (T scores -1.50 to -1.99), BMD testing every 5years mild osteopenia or normal BMD (T scores -1.50 and higher), BMD testingevery 15 years Micki FISCHER IMBianca DXA PROCEDURES Fi nal Result * Hm Colonoscopy (11/21/2018) Pathologist [facility] Colonoscopy Abstracted, no interpretation Anatomical Region Laterality Modality Other us Historical Provider HEALTH MAINTENANCE Final Result * Hepatitis C Screening (06/19/2012) [facility] Hepatitis C Screening Abstracted us Historical Provider HEALTH MAINTENANCE Final Result from Last 3 Months or Most Recently Relevant to Health Maintenance Insurance MEDICARE [facility] Advance Directives * Full Code - Confirmed (Latest Code Status on File) Date Activated Date Inactivated Comments 04/18/2024 3:21 PM 04/21/2024 6:32 PM This code status was ascertained in the following way: Code status discussion: discussion with healthcare telemarketing sales representative To update the patient's code status, place a code status order. Do not modify or discontinue any currently active code status orders. * Full Code - Default Date Activated Date Inactivated Comments 04/18/2024 2:54 PM 04/18/2024 3:21 PM This is or mic is used when code status has not been discussed with the patient, or code status is otherwise unknown/unconfirmed To update the patient's code status, place a code status order. Do not modify or discontinue any currently active code status orders. Care Teams Club Director Relationship Specialty Start Date End Date Clemente Preston MD [address] [place] [address] PCP - General 11/13/23
--- OUTSIDE RECORDS SUMMARY | 2025-02-18 19:32 | XMS_ITS ---
Author Name [facility] Organization Unknown History of Medication Use Medication Directions Dispensed Refills Start Date End Date Stat us lidocaine (PF) 100 mg/5 mL (2 %) injection syringe Take 8 mL by injection route. 05/21/2024 active Marcaine (PF) 0.5 % (5 mg/mL) injection solution Take 8 mL by injection route. 05/21/2024 active triamcinolone acetonide 40 mg/mL suspension for injection Take 80 mg by injection route. 05/21/2024 active lidocaine (PF) 100 mg/5 mL (2 %) injection syringe Take 4 mL by injection route. 09/21/2023 active Marcaine (PF) 0.5 % (5 mg/mL) injection solution Take 4 mL by injection route. 09/21/2023 active triamcinolone acetonide 40 mg/mL suspension for injection Take 40 mg by injection route. 09/21/2023 active lidocaine (PF) 10 mg/mL (1 %) injection solution Take 2 mL by injection route. 06/21/2023 active Kenalog 40 mg/mL suspension for injection Take 2 mL by injection route. 06/14/2023 active lidocaine (PF) 10 mg/mL (1 %) injection solution Take 2 mL by injection route. 06/14/2023 active cyclobenzaprine 5 mg tablet TAKE 1 TABLET (ORAL) 3 TIMES PER DAY (PAIN) FOR 10 DAYS 10/04/19 25 completed methocarbamol 750 mg tablet TAKE 1 TABLET BY MOUTH 3 TIMES A DAY FOR 10 DAYS. 10/04/19 25 completed midodrine 5 mg tablet TAKE 1/2 TABLET BY MOUTH TWICE A DAY WITH MEALS 10/04/19 25 completed Promiseb topical cream APPLY TO THE AFFECTED AREAS ON THE FACE TWICE DAILY. 10/04/19 25 active tramadol 50 mg tablet TAKE 1 TABLET BY MOUTH NIGHTLY NEEDED FOR SEVERE PAIN. 10/04/19 25 completed Trulicity 0.75 mg/0.5 mL subcutaneous pen injector INJECT 1 PEN SUBCUTANEOUSLY ONE TIME PER WEEK 10/04/19 25 active Trulicity 1.5 mg/0.5 mL subcutaneous pen injector INJECT 0.5 ML (1.5 MG) SUBCUTANEOUSLY ONE TIME PER WEEK 10/04/19 25 completed cephalexin 500 mg capsule TAKE 1 CAPSULE BY MOUTH TWICE A DAY FOR 10 DAYS 12/28/19 24 completed ibuprofen 800 mg tablet TAKE 1 TABLET BY MOUTH THREE TIMES A DAY 12/28/19 24 active metformin 500 mg tablet TAKE 1 TABLET BY MOUTH EVERY MORNING AND 2 TABS EVERY EVENING 09/21/19 24 active mirtazapine 15 mg tablet TAKE 1 TABLET BY MOUTH EVERYDAY AT BEDTIME 09/21/19 24 completed allopurinol 100 mg tablet TAKE 1 TABLET BY MOUTH EVERY DAY 06/14/19 24 completed allopurinol 100 mg tablet TAKE 1 TABLET BY MOUTH EVERY DAY 06/14/19 24 completed doxycycline monohydrate 100 mg tablet TAKE 1 TABLET BY MOUTH TWICE A DAY FOR 7 DAYS 06/14/19 24 completed doxycycline monohydrate 100 mg tablet TAKE 1 TABLET BY MOUTH TWICE A DAY FOR 7 DAYS 06/14/19 24 active Kenalog 40 mg/mL suspension for injection active lidocaine (PF) 10 mg/mL (1 %) injection solution active triamcinolone acetonide 40 mg/mL suspension for injection active lidocaine (PF) 100 mg/5 mL (2 %) injection syringe active Marcaine (PF) 0.5 % (5 mg/mL) injection solution active lidocaine (PF) 100 mg/5 mL (2 %) injection syringe active Marcaine (PF) 0.5 % (5 mg/mL) injection solution active Arnuity Ellipta 100 mcg/actuation powder for inhalation INHALE 1 PUFF BY MOUTH 1 (ONE) TIME EACH DAY. active cephalexin 500 mg capsule TAKE 1 CAPSULE BY MOUTH FOUR TIMES A DAY FOR 10 DAYS active citalopram 40 mg tablet TAKE 1 TABLET BY MOUTH EVERY DAY active citalopram 40 mg tablet TAKE 1 TABLET BY MOUTH EVERY DAY active cyclobenzaprine 5 mg tablet TAKE 1 TABLET (ORAL) 3 TIMES PER DAY (PAIN) FOR 10 DAYS active Eliquis 5 mg tablet TAKE 1 TABLET BY MOUTH TWICE A DAY active Eliquis 5 mg tablet TAKE 1 TABLET BY MOUTH TWICE A DAY active fluticasone propionate 44 mcg/actuation HFA aerosol inhaler INHALE 2 PUFFS INTO THE LUNGS TWICE A DAY active fluticasone propionate 44 mcg/actuation HFA aerosol inhaler INHALE 2 PUFFS INTO THE LUNGS TWICE A DAY active fluticasone propionate 50 mcg/actuation nasal spray,suspension SPRAY 1 SPRAY BY NASAL ROUTE EVERY DAY active fluticasone propionate 50 mcg/actuation nasal spray,suspension SPRAY 1 SPRAY BY NASAL ROUTE EVERY DAY active gabapentin 300 mg capsule TAKE 1 CAPSULE BY MOUTH DAILY NEEDED FOR PAIN active gabapentin 300 mg capsule TAKE 1 CAPSULE BY MOUTH DAILY NEEDED (PAIN). active halobetasol propionate 0.05 % topical cream APPLY 1 G TOPICALLY DAILY active halobetasol propionate 0.05 % topical cream APPLY 1 G TOPICALLY DAILY active hydrocortisone 1 % topical cream APPLY TO AFFECTED AREA TWICE A DAY active hydrocortisone 1 % topical cream APPLY TO AFFECTED AREA TWICE A DAY active ibuprofen 800 mg tablet active ketoconazole 2 % shampoo USE SHAMPOO A FACE WASH 1-2 TIMES WEEKLY NEEDED. FOLLOW WITH A MOISTURIZER. active ketoconazole 2 % shampoo USE SHAMPOO A FACE WASH 1-2 TIMES WEEKLY NEEDED. FOLLOW WITH A MOISTURIZER. active lisinopril 40 mg tablet TAKE 1 TABLET BY MOUTH 1 TIME EACH DAY. active lisinopril 40 mg tablet TAKE 1 TABLET BY MOUTH EVERY DAY active metformin 500 mg tablet TAKE 1 TABLET BY MOUTH TWICE A DAY WITH MEALS active metformin ER 500 mg tablet,extended release 24 hr TAKE 2 TABLETS BY MOUTH DAILY (WITH BREAKFAST). active metformin ER 500 mg tablet,extended release 24 hr TAKE 2 TABLETS BY MOUTH DAILY (WITH BREAKFAST). active methocarbamol 750 mg tablet TAKE 1 TABLET BY MOUTH 3 TIMES A DAY FOR 10 DAYS. active midodrine 5 mg tablet TAKE 1/2 TABLET BY MOUTH TWICE A DAY WITH MEALS active mirtazapine 15 mg tablet active mirtazapine 30 mg tablet TAKE 1 TABLET BY MOUTH EVERYDAY AT BEDTIME active mirtazapine 30 mg tablet TAKE 1 TABLET BY MOUTH EVERYDAY AT BEDTIME active Mounjaro 2.5 mg/0.5 mL subcutaneous pen injector INJECT 0.5 ML (2.5 MG TOTAL) UNDER THE SKIN EVERY 7 DAYS active naproxen 375 mg tablet,delayed release TAKE 2 TABLETS BY MOUTH ONCE A DAY WITH BREAKFAST FOR 10 DAYS. DO NOT CRUSH, CHEW, OR SPLIT. active naproxen 375 mg tablet,delayed release TAKE 2 TABLETS BY MOUTH ONCE A DAY WITH BREAKFAST FOR 10 DAYS. DO NOT CRUSH, CHEW, OR SPLIT. active nifedipine ER 30 mg tablet,extended release TAKE 1 TABLET BY MOUTH EVERY DAY active nifedipine ER 30 mg tablet,extended release TAKE 1 TABLET BY MOUTH EVERY DAY active nifedipine ER 60 mg tablet,extended release TAKE 1 TABLET BY MOUTH EVERY DAY active nifedipine ER 60 mg tablet,extended release TAKE 1 TABLET BY MOUTH EVERY DAY active pravastatin 40 mg tablet TAKE 1 TABLET BY MOUTH EVERYDAY AT BEDTIME active pravastatin 40 mg tablet TAKE 1 TABLET BY MOUTH EVERYDAY AT BEDTIME active Promiseb topical cream APPLY TO THE AFFECTED AREAS ON THE FACE TWICE DAILY. active tramadol 50 mg tablet TAKE 1 TABLET BY MOUTH NIGHTLY NEEDED FOR SEVERE PAIN. active triamterene 37.5 mg-hydrochlorothiazi de 25 mg tablet TAKE 1 TABLET BY MOUTH EVERY DAY active triamterene 37.5 mg-hydrochlorothiazi de 25 mg tablet TAKE 1 TABLET BY MOUTH EVERY DAY active Trulicity 0.75 mg/0.5 mL subcutaneous pen injector INJECT 1 PEN SUBCUTANEOUSLY ONE TIME PER WEEK active Trulicity 1.5 mg/0.5 mL subcutaneous pen injector INJECT 0.5 ML INTO THE SKIN EVERY 7 DAYS active valacyclovir 1 gram tablet TAKE 2 TABLETS BY MOUTH DAILY. TAKE 2 TABS BY MOUTH 2 TIMES DAILY FOR 1 DAY. FOR OUTBREAK active valacyclovir 1 gram tablet TAKE 2 TABLETS BY MOUTH DAILY. TAKE 2 TABS BY MOUTH 2 TIMES DAILY FOR 1 DAY. 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 ProblemAct [facility] Encounters Encounter Type Encounter Reason Primary Diagnosis Location Date Ambulatory [facility] 10/02/2024 Ambulatory [facility] 05[facility]20/2024 Ambulatory [facility] 05[facility]20/2024 Ambulatory [facility] 12/28/2023 Ambulatory [facility] 11/06/2023 Ambulatory [facility] 11/03/2023 Ambulatory [facility] 11/02/2023 Ambulatory [facility] 09[facility]20/2023 Ambulatory [facility] 09/20/2023 Ambulatory [facility] 06[facility]16/2023 Ambulatory [facility] 06/14/2023 Ambulatory [facility] 06/13/2023 Ambulatory [facility] 11[facility]11/2022 Ambulatory [facility] 11/03/2022 Ambulatory [facility] 10/04/2022 Ambulatory [facility] 10/04/2022 Ambulatory [facility] 06/29/2022 Care Team Organization Name Specialty Phone Email Start Date End Da te [facility] 03/24/2022 024
--- OUTSIDE RECORDS SUMMARY | 2025-02-18 19:32 | XMS_ITS | Encounter Summary ---
Author Organization [facility] [place] [address] Care Team Providers Care Racing Driver Name Role Phone Clemente Preston MD Primary Care Provider [phone] Encounter Details Date Type Department Care Team (Late st Contact Info) Description 05/06/[address] [facility] - Main Lab [address] [facility] [place] [address] Carolyn Zuleta MD [address] [place] [phone] Encounter for other general examination Social History Tobacco Use Types Packs/Day Years [...] Record ed Within the last 3 months, ho w many times did you visit the [...] care for your loved ones. For example, early childhood lead teacher or elderly care for an older adult? [...] 04/19/2024 Verbal Abuse Unrecognized value 04/19/2024 Comments Unknown Sex and Gender Information Value Date Recorded Sex Assigned at Female 05/31/2024 1:01 PM EST Legal Sex Female 6:08 PM EST Gender Identity Female 05/31/2024 1:01 PM EST Sexual Orientation Straight 05/31/2024 1: 01 PM EST documented as of this encounter Functional Status * Are you deaf or do you have serious difficulty hearing? Answer Date of Assessment Author No 03/30/2024 5:20 AM Sabiha Matthews RN * Are you blind or do you have serious difficulty seeing, even when wearing glasses? Answer Date of Assessment Author No 03/30/2024 5:20 AM EST Bressette , Sabiha, RN * Do you have serious difficulty walking or climbing stairs? Answer Date of Assessment Author No 03/30/2024 5:20 AM Sabiha Matthews RN * Do you have serious difficulty dressing or bathing? Answer Date of Assessment Author No 03/30/2024 5:20 AM Sabiha Matthews RN * Because of a physical, mental, or emotional condition, do you have serious difficulty doing errandsalone such as visiting the doctor? Answer Date of Assessment Author No 03/30/2024 5:20 AM Sabiha Matthews RN documented as of this encounter Mental Status * Because of a physical, mental, or emotional condition, do you have serious difficulty concentrating, remembering, or making decisions? (5 years old or older) Answer Entry Date Author No 03/30/2024 5:20 AM Sabiha Matthews RN documented in this encounter Plan of Treatment Upcoming Encounters Date Type Department Care Team (Late st Contact Info) Description 03/11/2025 10:30 AM EST Office Visit Pulmonology - [address] [phone] Meche Verma MD [address] [place] [phone] 03/14/2025 11:30 AM EST Office Visit Endocrinology - [address] [phone] Kylah Barnett MD [address] [place] [phone] 03/27/2025 3:00 PM EST Office Visit [facility] - [facility] [address] [facility] [address] [place] [phone] Hill Box MD [address] [place] [address] [place] [phone] 05/13/2025 11:00 AM EST Office Visit Internal Medicine - [facility] [address] [facility] [address] [place] [phone] Clemente Preston MD [address] [place] [phone] 09/29/2025 2:30 PM EDT Office Visit [facility] Hematology Oncology [address] [place] [address] Regine Briseno MD [address] [place] [address] 12/22/2025 9:45 AM EDT [facility]oint[facility] [address] [phone] documented as of this encounter Procedures Procedure Name Priority Date/Time Associated Diagnosis Comments CBC WITH AUTO DIFFERENTIAL Routine 05/06/2024 5:38 AM EST Encounter for other general examination CBC AND DIFFERENTIAL Routine 05/06/2024 5:38 AM EST Encounter for other general examination C-REACTIVE PROTEIN Routine 05/06/2024 5: 38 AM EST Encounter for other general examination URIC ACID Routine 05/06/2024 5:38 AM EST Encounter for other general examination MAGNESIUM Routine 05/06/2024 5:38 AM EST Encounter for other general examination COMPREHENSIVE METABOLIC PANEL Routine 05/06/2024 5:38 AM EST Encounter for other general examination documented in this encounter Results * (ABNORMAL) CBC auto differential (05/06/2024 5:38 AM EST) WBC 7.6 4.8 - 10.8 K/mcL LAB HEMETOLOGY METHOD 05/06/2024 12:22 PM EST [facility] RBC 3.80 3.80 - 4.80 M/mcL LAB HEMETOLOGY METHOD 05/06/2024 12:22 PM EST [facility] Hemoglobin 10.8(L) 11.5 - 16.0 g/dL LAB HEMETOLOGY METHOD 05/06/2024 12:22 PM [facility] Hematocrit 34.5(L) 35.0 - 47.0 % LAB HEMETOLOGY METHOD 05/06/2024 12:22 PM [facility] MCV 91.8 79.0 - 98.0 FL LAB HEMETOLOGY METHOD 05/06/2024 12:22 PM [facility] MCH 28.7 27.0 - 32.0 pcg LAB HEMETOLOGY METHOD 05/06/2024 12:22 PM [facility] MCHC 31.3(L) 32.0 - 37.0 g/dL LAB HEMETOLOGY METHOD 05/06/2024 12:22 PM [facility] RDW 13.8 11.0 - 15.0 % LAB HEMETOLOGY METHOD 05/06/2024 12:22 PM [facility] Platelets 403(H) 130 - 400 K/mcL LAB HEMETOLOGY METHOD 05/06/2024 12:22 PM [facility] MPV 10.1 7.0 - 11.0 FL LAB HEMETOLOGY METHOD 05/06/2024 12:22 PM [facility] NRBC 0.0 <1.0 % LAB HEMETOLOGY METHOD 05/06/2024 12:22 PM [facility] NRBC Absolute 0.00 <0.10 K/mcL LAB HEMETOLOGY METHOD 05/06/2024 12:22 PM [facility] Neutrophils Relative 74.9 % LAB HEMETOLOGY METHOD 05/06/2024 12:22 PM [facility] Lymphocytes Relative 14.1 % LAB HEMETOLOGY METHOD 05/06/2024 12:22 PM [facility] Monocytes Relative 8.4 % LAB HEMETOLOGY METHOD 05/06/2024 12:22 PM [facility] Eosinophils Relative 1.4 % LAB HEMETOLOGY METHOD 05/06/2024 12:22 PM [facility] Basophils Relative 0.8 % LAB HEMETOLOGY METHOD 05/06/2024 12:22 PM [facility] Immature Granulocytes Relative 0.4 % LAB HEMETOLOGY METHOD 05/06/2024 12:22 PM [facility] Neutrophils Absolute 5.70 1.50 - 7.00 K/mcL LAB HEMETOLOGY METHOD 05/06/2024 12:22 PM [facility] Lymphocytes Absolute 1.07 1.00 - 5.00 K/mcL LAB HEMETOLOGY METHOD 05/06/2024 12:22 PM [facility] Monocytes Absolute 0.64 0.20 - 1.00 K/mcL LAB HEMETOLOGY METHOD 05/06/2024 12:22 PM [facility] Eosinophils Absolute 0.11 0.00 - 0.50 K/mcL LAB HEMETOLOGY METHOD 05/06/2024 12:22 PM [facility] Basophils Absolute 0.06 0.00 - 0.20 K/mcL LAB HEMETOLOGY METHOD 05/06/2024 12:22 PM [facility] Immature Granulocytes Absolute 0.03 0.00 - 0.03 K/mcL LAB HEMETOLOGY METHOD 05/06/2024 12:22 PM [facility] Blood Venous blood specimen / Unknown Venipuncture / Unknown 05/06/2024 5:38 AM EST 05/06/2024 10:12 AM EST us Carolyn Zuleta MD LAB BLOOD ORDERABLES Final Resu lt [facility] [address] [place] [address], * Uric acid (05/06/2024 5:38 AM EST) Uric Acid 7.3 3.1 - 7.8 mg/dL LAB CHEMISTRY METHOD 05/06/2024 12:20 PM EST [facility] Blood Venous blood specimen / Unknown Venipuncture / Unknown 05/06/2024 5:38 AM EST 05/06/2024 10:12 AM EST us Carolyn Zuleta MD LAB BLOOD ORDERABLES Final Resu lt Performing Organization Address [facility]/ZIP Co de Phone Number [facility] [address] [place] [address], [place] [phone] * (ABNORMAL) Magnesium (05/06/2024 5:38 AM EST) [facility] Magnesium 1.8(L) 1.9 - 2.6 mg/dL LAB CHEMISTRY METHOD 05/06/2024 12:20 PM EST [facility] Blood Venous blood specimen / Unknown Venipuncture / Unknown 05/06/2024 5:38 AM EST 05/06/2024 10:12 AM EST us Carolyn Zuleta MD LAB BLOOD ORDERABLES Final Resu lt Performing Organization Address [facility]/ZIP Co de Phone Number [facility] [address] [place] [address], [place] [phone] * (ABNORMAL) C-reactive protein (05/06/2024 5:38 AM EST) [facility] C-Reactive Protein 12.10(H) <=0.50 mg/dL LAB CHEMISTRY METHOD 05/06/2024 12:20 PM EST [facility] Blood Venous blood specimen / Unknown Venipuncture / Unknown 05/06/2024 5:38 AM EST 05/06/2024 10:12 AM EST us Carolyn Zuleta MD LAB BLOOD ORDERABLES Final Resu lt [facility] [address] [place] [address], * (ABNORMAL) Comprehensive metabolic panel (05/06/2024 5:38 AM EST) Sodium 139 133 - 145 mmol/L LAB CHEMISTRY METHOD 05/06/2024 12:21 PM [facility] Potassium 4.5 3.5 - 5.5 mmol/L LAB CHEMISTRY METHOD 05/06/2024 12:21 PM [facility] Chloride 106 96 - 110 mmol/L LAB CHEMISTRY METHOD 05/06/2024 12:21 PM [facility] CO2 28 21 - 32 mmol/L LAB CHEMISTRY METHOD 05/06/2024 12:21 PM [facility] Anion Gap 5 3 - 11 LAB CHEMISTRY METHOD 05/06/2024 12:21 PM [facility] Glucose 102(H) 70 - 100 mg/dL LAB CHEMISTRY METHOD 05/06/2024 12:21 PM [facility] BUN 19 5 - 25 mg/dL LAB CHEMISTRY METHOD 05/06/2024 12:21 PM [facility] Creatinine 0.80 0.50 - 1.10 mg/dL LAB CHEMISTRY METHOD 05/06/2024 12:21 PM [facility] eGFR 81 >=60 mL/min/1. 73m2 LAB CHEMISTRY METHOD 05/06/2024 12:21 PM [facility] Comment:Calculation based on the Chronic Kidney Disease Epidemiology Collaboration (CKD-EPI) equation refit without adjustment for race. BUN/Creatinine Ratio 23.8 LAB CHEMISTRY METHOD 05/06/2024 12:21 PM [facility] Calcium 9.4 8.5 - 10.5 mg/dL LAB CHEMISTRY METHOD 05/06/2024 12:21 PM [facility] AST (SGOT) 46(H) 10 - 42 unit/L LAB CHEMISTRY METHOD 05/06/2024 12:21 PM [facility] ALT (SGPT) 60 10 - 60 unit/L LAB CHEMISTRY METHOD 05/06/2024 12:21 PM [facility] Alkaline Phosphatase 94 42 - 121 unit/L LAB CHEMISTRY METHOD 05/06/2024 12:21 PM [facility] Total Protein 5.8(L) 6.0 - 8.0 g/dL LAB CHEMISTRY METHOD 05/06/2024 12:21 PM [facility] Albumin 2.5(L) 3.2 - 5.0 g/dL LAB CHEMISTRY METHOD 05/06/2024 12:21 PM [facility] Total Bilirubin 0.3 0.0 - 1.4 mg/dL LAB CHEMISTRY METHOD 05/06/2024 12:21 PM [facility] Blood Venous blood specimen / Unknown Venipuncture / Unknown 05/06/2024 5:38 AM EST 05/06/2024 10:12 AM EST us Carolyn Zuleta MD LAB BLOOD ORDERABLES Final Resu lt [facility] [address] [place] [address], documented in this encounter Visit Diagnoses Diagnosis Encounter for other general examination Encounter for screening mammogram for breast cancer documented in this encounter Care Teams Racing Driver Relationship Specialty Start Date End Date Clemente Preston MD [address] [address] PCP - General 11/13/23 documented as of this encounter
--- OUTSIDE RECORDS SUMMARY | 2025-02-18 19:32 | XMS_ITS | Data Portability ---
Author Organization [place] [facility] [place] Address [address] [place] [address] Care Team Providers Care Cordwood Cutter Name Role Phone JORDAN ORTEZ Referring Provider [phone] PÉREZ ORTEGA Referring Provider Unavailable [facility] Primary Care Pr ovider Assessment Encounter Date Assessment Date Assessment LastModified by Organization Details LastModified Time 09/21/2023 09/21/2023 67-year-old female with advanced osteoarthritis of bilateral knees. After discussion regarding treatment options she will have the left knee injected with cortisone today. She is specific and requesting a double dose therefore she will be given an 80 mg dose of steroid. She will be returned to the office in a week or 2 for cortisone injection to the right knee. Notably, she is making progress towards her weight loss efforts and is anxious to achieve her target goal weight so that she can proceed with joint arthroplasty. This patient was seen and evaluated by Tash Quevedo MS, PA-C in indirect conjunction with documenting/super vising provider Jaswinder Linares MD. He agrees with history, physical examination, tests/diagnostic imaging, and treatment plan. This document was generated using voice recognition software. As a result, there may be unintended spelling, grammatical and/or textual errors. Not available 09/21/2023 09:09:22 11/03/2023 11/03/2023 68-year-old female with osteoarthritis of bilateral knees. At present moment, her left knee symptoms are well-controlled following a recent cortisone injection. She wishes to proceed with cortisone injection to the right knee today. See the attached procedure note. She will also be provided an order for physical therapy. Follow-up for recheck in 2 months. This patient was seen and evaluated by Tash Quevedo MS, PA-C in indirect conjunction with documenting/super vising provider Jaswinder Linares MD. He agrees with history, physical examination, tests/diagnostic imaging, and treatment plan. This document was generated using voice recognition software. As a result, there may be unintended spelling, grammatical and/or textual errors. Not available 11/03/2023 14:58:52 12/28/2023 12/28/2023 68-year-old female with left knee pain. History, examination and x-rays are consistent with advanced osteoarthritis. After discussion regarding treatment options she wishes to proceed with cortisone injection into the left knee today; see the attached procedure note. Follow-up is as needed. This patient was seen and evaluated by Tash Quevedo MS, PA-C in indirect conjunction with documenting/super vising provider Jaswinder Linares MD. He agrees with history, physical examination, tests/diagnostic imaging, and treatment plan. This document was generated using voice recognition software. As a result, there may be unintended spelling, grammatical and/or textual errors. Not available 12/28/2023 11:34:41 05/21/2024 05/21/2024 68-year-old female with bilateral knee pain. History, examination and x-rays are consistent with advanced osteoarthritis with gufv-nn-kchk articulation. Concomitant medical issues are prohibiting total joint arthroplasty at this time. She wishes to proceed with bilateral knee cortisone injection today. This patient was seen and evaluated by Tash Quevedo MS, PA-C in indirect conjunction with documenting/super vising provider Jaswinder Linares MD. He agrees with history, physical examination, tests/diagnostic imaging, and treatment plan. This document was generated using voice recognition software. As a result, there may be unintended spelling, grammatical and/or textual errors. [email or web address] Not available 05/21/2024 14:25:25 10/03/2024 10/03/2024 69-year-old female with bilateral knee pain. History, examination and x-rays are consistent with advanced osteoarthritis with vifm-aj-gvqr articulation. After discussion regarding treatment options she wishes to proceed with repeat cortisone injections to bilateral knees today. She will follow-up as needed. This patient was seen and evaluated by Tash Quevedo MS, PA-C in indirect conjunction with documenting/super vising provider Jaswinder Linares MD. He agrees with history, physical examination, tests/diagnostic imaging, and treatment plan. This document was generated using voice recognition software. As a result, there may be unintended spelling, grammatical and/or textual errors. Not available 10/03/2024 12:19:08 Plan of Treatment Reminders Order Date Submit Date Provider Last Modified By Organization Details Last Modified Time Details Appointments None recorded. Lab None recorded. Referral None recorded. Procedures None recorded. Surgeries None recorded. Imaging XR, knee, 4 or more view 2024 025 [place] [id number] [facility], [address], [place], [address], 5 14:34:18 XR, knee, 4 or more view 2024 025 [place] [id number] [facility], [address], [address], [place], [address], 5 14:34:18 XR, knee, 4 or more view 2023 024 [email or web address] [facility], [address], [address], [place], [address], 4 09:40:33 XR, knee, 4 or more view 2023 024 [email or web address] 2 [facility], [address], [place], [address], 4 09:40:33 Medication Orders Marcaine (PF) 0.5 % (5 mg/mL) injection solution 2024 025 [email or web address] [facility]/Pharmacy #[id number], [address], [place], [address], 5 12:19:25 lidocaine (PF) 100 mg/5 mL (2 %) injection syringe [address]/Pharmacy #2476, [address] [place] [address], [address], 5 12:19:25 triamcinolo ne acetonide 40 mg/mL suspension for injection [address]/Pharmacy #2476, [address] [place] [address], [address], 5 12:19:25 Marcaine (PF) 0.5 % (5 mg/mL) injection solution [address]/Pharmacy #2476, [address] [place] [address], [address], 5 14:37:46 lidocaine (PF) 100 mg/5 mL (2 %) injection syringe [address]/Pharmacy #2476, [address] [place] [address], [address], 5 14:37:46 triamcinolo ne acetonide 40 mg/mL suspension for injection [address]/Pharmacy #2476, [address] [place] [address], [address], 5 14:37:46 Marcaine (PF) 0.5 % (5 mg/mL) injection solution [address]/Pharmacy #2476, [address] [place] [address], [address], 4 12:13:10 lidocaine (PF) 100 mg/5 mL (2 %) injection syringe [address]/Pharmacy #2476, [address] [place] [address], [address], 4 12:13:10 triamcinolo ne acetonide 40 mg/mL suspension for injection [address]/Pharmacy #2476, [address] [place], [address], 4 12:13:10 Marcaine (PF) 0.5 % (5 mg/mL) injection solution [address]/Pharmacy #0859, [address] [place] [address], [address], 4 15:07:00 lidocaine (PF) 100 mg/5 mL (2 %) injection syringe [address]/Pharmacy #0859, [address] [place] [address], [address], 4 15:07:00 triamcinolo ne acetonide 40 mg/mL suspension for injection [address]/Pharmacy #0859, [address] [place] [address], [address], 4 15:07:00 Marcaine (PF) 0.5 % (5 mg/mL) injection solution [address]/Pharmacy #0859, [address] [place] [address], [address], 4 09:15:32 lidocaine (PF) 100 mg/5 mL (2 %) injection syringe [address]/Pharmacy #0859, [address] [place] [address], [address], 4 09:15:32 triamcinolo ne acetonide 40 mg/mL suspension for injection [address]/Pharmacy #0859, [address] [place] [address], [address], 4 09:15:32 Patient TargetsNo targets recorded. Patient Instructions Encounter Date Encounter Id Patient Instructions Last Modified By Organization Details Last Modified Time 11/03/2023 [id number] physical therapy * - Diagnosis: Osteoarthritis of bilateral knees Evaluate and treat as indicated to reduce pain and to improve strength, mobility, stability, range of motion, and function. Please teach a home exercise plan and incorporate PT into patient's exercise routine. 2-3 sessions weekly for 6-8 weeks. [email or web address] Not available 11/10/2023 09:13:17 Reason for Referral None Reported. Problems Name Problem SNOMED Code Status Onset Date Resolution Date Notes Provider Name and Address Organization Details Recorded Time Arthritis of left knee joint 5320939661590 104 Active 2022 TASH QUEVEDO PA-C [address], [place], [address], [place] [facility] 3 13:25:25 Arthritis of right knee joint 6432307070658 102 Active 2022 TASH QUEVEDO PA-C [address], [place], [address], [place] [facility], [facility] 3 13:25:26 Osteoarthri tis of right knee joint 2894605092416 00 Active 2023 TASH BUCHANAN PA-C [address], [place], [address], [place] [facility], [facility] 4 07:39:39 Primary gonarthrosi s, bilateral 229515027 Active 2023 TASH QUEVEDO PA-C [address], [place], [address], [place] [facility], [facility] 4 09:08:11 Problem Notes None recorded. Procedures Surgical History Date Name Laterality Status Provider Name and Address Organization Details Recorded Time 5 MJG Knee injection w/US completed TASH QUEVEDO PA-C [address], [place], [address], [place] [facility] 10/03/2024 12:13:12 5 MJG Knee injection w/US completed TASH QUEVEDO PA-C [address], [place], [address], [place] [facility] 05/21/2024 14:24:27 4 MJG Knee injection w/US completed TASH QUEVEDO PA-C [address], [place], [address], [place] [facility], [facility] 12/28/2023 11:34:49 4 MJG Knee injection w/US completed TASH QUEVEDO PA-C [address], [place], [address], [place] [facility] 11/03/2023 14:58:21 4 MJG Knee injection w/US completed TASH QUEVEDO PA-C [address], [place], [address], [place] [facility] 09/21/2023 09:07:59 4 Knee Joint/Bursa Asp & Inj completed TASH BUCHANAN PA-C [address], [place], [address], [place] [facility] 06/21/2023 07:38:42 4 Knee Joint/Bursa Asp & Inj completed TASH BUCHANAN PA-C [address], [place], [address], [place] [facility] 06/14/2023 12:54:35 3 MJG Knee injection w/US completed TASH QUEVEDO PA-C [address], [place], [address], [place] [facility] 12/20/2022 16:09:48 procedure on ankle completed [place] [facility] 10/04/2022 13:16:23 Imaging Results None recorded. Procedure Notes None recorded. Medical Equipment None Reported. Allergies Allergen ID Allergen Name Allergen Category Reaction Reaction Severity Criticality Documentation Date Start Date Code Code System Note Provider Name and Address Organization Details Recorded Time 06824 cyclobenz aprine hydrochlo ride medicatio n diarrhea Not available Not available 10/03/2024 12406 RxNorm neck and joint pain [place], [place] - [facility] 12:20:10 Medications Name Sig Start Date Stop Date Status Note LastModified by Organization Details LastModified Time metformin 500 mg tablet TAKE 1 TABLET BY MOUTH EVERY MORNING AND 2 TABS EVERY EVENING active Not Available Not Available No t Available ketoconazol e 2 % shampoo Apply topically . active Not Available Not Available No t Available citalopram 40 mg tablet TAKE 1 TABLET BY MOUTH EVERY DAY active Not Available Not Available No t Available pravastatin 40 mg tablet TAKE 1 TABLET BY MOUTH EVERYDAY AT BEDTIME active Not Available Not Available No t Available ibuprofen 800 mg tablet active Not Available Not Available Not Available valacyclovi r 1 gram tablet TAKE 2 TABLETS BY MOUTH 2 TIMES DAILY FOR OUTBREAK OR DIRECTED active Not Available Not Available No t Available bupivacaine HCl 0.5 % (5 mg/mL) injection solution 02/22 completed Not Available Not Available Not Available midodrine 5 mg tablet TAKE 1/2 TABLET BY MOUTH TWICE A DAY WITH MEALS 10/03 completed Not Available Not Available Not Available nifedipine ER 30 mg tablet,exte nded release TAKE 1 TABLET BY MOUTH EVERY DAY active Not Available Not Available No t Available allopurinol 100 mg tablet TAKE 1 TABLET BY MOUTH EVERY DAY 06/14 completed Not Available Not Available Not Available aspirin 81 mg tablet,debi yed release Take 1 tablet by mouth daily. active Not Available Not Available No t Available doxycycline monohydrate 100 mg tablet TAKE 1 TABLET BY MOUTH TWICE A DAY FOR 7 DAYS 06/14 completed Not Available Not Available Not Available tramadol 50 mg tablet TAKE 1 TABLET BY MOUTH NIGHTLY NEEDED FOR SEVERE PAIN. 10/03 completed Not Available Not Available Not Available methocarbam ol 750 mg tablet TAKE 1 TABLET BY MOUTH 3 TIMES A DAY FOR 10 DAYS. 10/03 completed Not Available Not Available Not Available hydrocortis one 1 % topical cream APPLY TO AFFECTED AREA TWICE A DAY active Not Available Not Available No t Available triamcinolo ne acetonide 40 mg/mL suspension for injection Take 40 mg by injection route. 2024 active Not Available Not Available Not Avai lable cephalexin 500 mg capsule TAKE 1 CAPSULE BY MOUTH FOUR TIMES A DAY FOR 10 DAYS 10/03 completed Not Available Not Available Not Available methylpredn isolone acetate 40 mg/mL suspension for injection 10/12 completed Not Available Not Available Not Available mirtazapine 30 mg tablet TAKE 1 TABLET BY MOUTH EVERYDAY AT BEDTIME active Not Available Not Available No t Available fluticasone propionate 44 mcg/actuati on HFA aerosol inhaler INHALE 2 PUFFS INTO THE LUNGS TWICE A DAY active Not Available Not Available No t Available gabapentin 300 mg capsule TAKE 1 CAPSULE BY MOUTH ONCE A DAY IF NEEDED FOR PAIN active Not Available Not Available No t Available triamterene 37.5 mg-hydrochl orothiazide 25 mg tablet TAKE 1 TABLET BY MOUTH EVERY DAY 10/03 completed Not Available Not Available Not Available halobetasol propionate 0.05 % topical cream APPLY 1 G TOPICALLY DAILY active Not Available Not Available No t Available mometasone 0.1 % topical ointment Apply a thin layer twice daily for 2 weeks. 05/30 completed Not Available Not Available Not Available mirtazapine 15 mg tablet active Not Available Not Available Not Available nystatin 100,000 unit/gram topical powder APPLY TWO TIMES A DAY NEEDED FOR RASH 2018 active Not Available Not Available Not Avai lable lysine 500 mg tablet Take 1 tablet by mouth daily. active Not Available Not Available No t Available nifedipine ER 60 mg tablet,exte nded release TAKE 1 TABLET BY MOUTH 1 TIME EACH DAY. active Not Available Not Available No t Available lisinopril 40 mg tablet TAKE 1 TABLET BY MOUTH 1 TIME EACH DAY. active Not Available Not Available No t Available fluticasone propionate 50 mcg/actuati on nasal spray,suspe nsion SPRAY 1 SPRAY BY NASAL ROUTE EVERY DAY active Not Available Not Available No t Available metformin ER 500 mg tablet,exte nded release 24 hr TAKE 2 TABLETS BY MOUTH DAILY (WITH BREAKFAST ). active Not Available Not Available No t Available naproxen 375 mg tablet,debi yed release TAKE 2 TABLETS BY MOUTH ONCE A DAY WITH BREAKFAST FOR 10 DAYS. DO NOT CRUSH, CHEW, OR SPLIT. active Not Available Not Available No t Available cyclobenzap rine 5 mg tablet TAKE 1 TABLET (ORAL) 3 TIMES PER DAY (PAIN) FOR 10 DAYS 10/03 completed Not Available Not Available Not Available Marcaine (PF) 0.5 % (5 mg/mL) injection solution Take 4 mL by injection route. 2024 active Not Available Not Available Not Avai lable lidocaine (PF) 10 mg/mL (1 %) injection solution Take 2 mL by injection route. 2023 active Not Available Not Available Not Avai lable lidocaine (PF) 20 mg/mL (2 %) injection solution 02/22 completed Not Available Not Available Not Available Promiseb topical cream APPLY TO THE AFFECTED AREAS ON THE FACE TWICE DAILY. active Not Available Not Available No t Available lidocaine (PF) 100 mg/5 mL (2 %) injection syringe Take 4 mL by injection route. 2024 active Not Available Not Available Not Avai lable Eliquis 5 mg tablet TAKE 1 TABLET BY MOUTH TWICE A DAY active Not Available Not Available No t Available Trulicity 1.5 mg/0.5 mL subcutaneou s pen injector INJECT 0.5 ML (1.5 MG) SUBCUTANE OUSLY ONE TIME PER WEEK 10/03 completed Not Available Not Available Not Available Trulicity 0.75 mg/0.5 mL subcutaneou s pen injector INJECT 1 PEN SUBCUTANE OUSLY ONE TIME PER WEEK 10/03 completed Not Available Not Available Not Available Arnuity Ellipta 100 mcg/actuati on powder for inhalation INHALE 1 PUFF BY MOUTH 1 (ONE) TIME EACH DAY. active Not Available Not Available No t Available Eliquis DVT-PE Treatment 30-Day Starter 5 mg (74 tablets) in dose pack TAKE 2 TABLETS BY MOUTH 2 TIMES A DAY FOR 6 DAYS. THEN 1 TABLET 2 TIMES A DAY. 10/03 completed Not Available Not Available Not Available Mounjaro 2.5 mg/0.5 mL subcutaneou s pen injector INJECT 0.5 ML (2.5 MG TOTAL) UNDER THE SKIN EVERY 7 DAYS active Not Available Not Available No t Available Vitals Date Recorded Body height Provider Name an d Address Organization Details Last Updated DateTime 05/21/2024 [address] [place] [facility] 05/21/2024 14:02:35 Date Recorded Body height Body mass index (BMI) Body weight Provider Name and Address Organization Details Last Updated DateTime 09/21/2023 187.96 cm 42.4 kg/m2 697447.64 phyllis Oates [place] - [facility] 09/21/2023 09:21:25 Date Recorded Body height Body mass index (BMI) Body weight Provider Name and Address Organization Details Last Updated DateTime 12/28/2023 187.96 cm 42.4 kg/m2 448563.48 phyllis Ramos [place] [facility] 12/28/2023 11:23:42 Social History None recorded. Functional Status Question Answer Note LastModified by Organizat ion Details LastModified Time Do you use any illicit or recreational drugs? No Information not available 10/04/2022 Do you or have you ever used any other forms of tobacco or nicotine? No Information not available 10/04/2022 What is your level of alcohol consumption? None Information not available 10/04/2022 Mental Status None recorded. Family History Nothing Reported. Medical History Condition Response Diabetes Y Asthma Y Gynecological HistoryNo gynecological history recorded. Obstetrics History GPAL:G 0 P 0 0 0 0 Past Encounters Encounter ID Performer Location Encounter Start Date Encounter Closed Date Diagnosis/Indication Diagnosis SNOMED-CT Code Diagnosis ICD10 Code Diagnosis IMO Codes Diagnosis Note [id number] CASSANDRA LYN [address] [address] 10/04/2022 13:10:14 10/04/2022 13:24:35 Arthritis of right knee joint 1427182067 542994 M13.861 Arthritis of left knee joint 8314322834 025310 M13.862 [id number] CASSANDRA LYN [place] [address] [address] 12/20/2022 15:48:05 12/20/2022 16:22:50 Arthritis of left knee joint 8950741918 778174 M13.862 Arthritis of right knee joint 8656733330 826205 M13.861 [id number] CASSANDRA REYNA [facility] [address] [address] 06/14/2023 10:52:29 06/14/2023 11:15:09 Arthritis of left knee joint 3928719503 424931 M13.862 Arthritis of right knee joint 8053046352 514250 M13.861 [id number] CASSANDRA REYNA [facility] 299 [facility] [address] [facility] [place] [address] 06/21/2023 08:39:44 06/21/2023 08:58:33 Osteoarthritis of right knee joint 0871976522 45110 M17.11 [id number] CASSANDRA LYN [facility] [address] [facility] [address] [facility] [place] [address] 09/21/2023 08:31:41 09/21/2023 09:40:33 Osteoarthritis of right knee joint 1050771912 68169 M17.11 Pain of le ft knee joint 8219017690 36524 M25.562 Additional diagnosis detail: Pain, joint, knee, left Primary go narthrosis, bilateral 060428516 M17.0 Additional diagnosis detail: Bilateral primary osteoarthr itis of knee [id number] CASSANDRA LYN [facility] [address] [place] [address] 11/03/2023 14:12:01 11/03/2023 15:19:25 Arthritis of right knee joint 2272062555 373775 M13.861 [id number] CASSANDRA LYN [facility] [address] [place] [address] 12/28/2023 11:16:47 12/28/2023 11:38:49 Pain of left knee joint 7243343863 57548 M25.562 [id number] Additional diagnosis detail: Pain, joint, knee, left [id number] CASSANDRA LYN [place] [address] [address] 05/21/2024 13:50:36 05/21/2024 14:34:18 Arthritis of left knee joint 4359356501 296976 M13.862 Arthritis of right knee joint 3278183854 536042 M13.861 Primary go narthrosis, bilateral 399113036 M17.0 [id number] CASSANDRA LYN [facility] 299 [facility] [address] [place] [address] 10/03/2024 11:34:44 10/03/2024 12:20:10 Primary gonarthrosis, bilateral 552358300 M17.0 Additional diagnosis detail: Bilateral primary osteoarthr itis of knee Health Concerns Section Related Observation LastModified by Organization Detai ls LastModified Time None Recorded Concern Status LastModified by Organization Details LastModified Time None Recorded Advance Directives Directive None Recorded Payers Insurance Date Sequence Insurance Name Policy Number Policy Arce Covered Member ID Arce Member ID Guarantor Name 01/28/2025 2 [place] ([place]) 106 Marcell Haley [id number] Marie Haley 01/28/2025 1 [place] Marie Higginsall [id number] Marie Osmin Haley Notes Date Note Type Note Provider Name and Address Organization Details Recorded Time 09/21/2023 text/html 67-year-old female presents for bilateral knee pain. She is known to have advanced osteoarthritis. She reports that her most recent cortisone injections in May 2023 were effective in giving her almost 3 months worth of relief. She states that she has made progress with her efforts towards weight loss. She is not yet at her target weight. She is anxious to undergo total joint arthroplasty once she becomes a candidate. She wishes to have repeat cortisone injections. TASH QUEVEDO PA-C [address] [facility] [address], [place], [address], [place] [facility] 09/21/2023 09:26:31 11/03/2023 text/html 68-year-old female presents for recheck of bilateral knees. She reports that her cortisone injection at the end of August of this year was effective at reducing the severity of her pain. She states that during a recent heat wave she had an increase in discomfort but it has since settled back down. She reports persistent pain at the right knee and wishes to proceed with cortisone injection to the right knee today. She also specifically requesting an order for physical therapy. TASH QUEVEDO PA-C [address] [facility],[address] [address], [place], [address], [place] [facility] 11/03/2023 15:19:02 12/28/2023 text/html 68-year-old female presents with chief complaint of left knee pain. She reports that her September 21, 2023 cortisone injection was helpful at controlling her pain up to very recently. She describes greater than 3 months worth of pain relief. She expresses an interest in repeat cortisone injection today. She denies any substantial change in character quality or location of her symptoms and there is been no new injury. TASH QUEVEDO PA-C [address] [facility],[address], [place], [address], [place] [facility] 12/28/2023 11:38:45 05/21/2024 text/html 68-year-old female presents with recurrence of bilateral knee pain. She is known to have advanced osteoarthritis of bilateral knees. She had a cortisone injection to the left knee last December and the right knee last October. She states that the relief from those injections lasted up into the start of this year. She states that she was recently diagnosed with pulmonary emboli. Subsequent to this she has been doing rehab. She states that rehab has likely made the pain worse and that the pain has negatively impacted her rehab efforts. She wishes to proceed with repeat cortisone injections today. TASH QUEVEDO PA-C [address], [place], [address], [place] - [facility], [facility] 05/21/2024 14:38:17 10/03/2024 text/html 69-year-old female presents with recent recurrence of bilateral knee pain. She reports that her late April 2024 cortisone injections were effective at giving her pain relief lasting for approximately 3 months. She reports that it made it possible for her to do physical therapy. She reports a recurrence of pain that is of similar character, quality and location as her presenting complaints on her last office visit. There has been no new injury, accident or trauma. She requests repeat injections today. TASH QUEVEDO PA-C [address] [facility],[address], [place], [address], [place] - [facility], [facility] 10/03/2024 12:19:19 OBGyn Episode No OBEpisode recorded.
--- OUTSIDE RECORDS SUMMARY | 2025-02-18 19:32 | XMS_ITS | Clinical Summary ---
Author Organization [facility] Address [address] [place] [address] Care Team Providers Care Supervisor Fertilizer Name Role Phone Kia Trejo Primary Care Provider [phone] Allergies No known active allergies Medications Medication Sig Dispensed Refills Start Date End Date Status triamterene-hydrochloro thiazide (MAXZIDE-25) 37.5-25 MG per tablet Take 1 tablet by mouth daily. 0 09/10/2021 Active mirtazapine (REMERON) 15 MG tablet Take 15 mg by mouth every night at bedtime. 0 09/11/2021 Active pravastatin (PRAVACHOL) tablet 40 mg Take 40 mg by mouth every night at bedtime. 0 09/11/2021 Active dulaglutide (TRULICITY) 1.5 MG/0.5ML subcutaneous pen-injector Inject 0.5 mL under the skin. 0 08/24/2021 Active NIFEdipine ER (ADALAT CC) 60 MG 24 hr tablet Take 60 mg by mouth daily. 0 09/12/2021 Active citalopram (CeleXA) 40 MG tablet Take 40 mg by mouth daily. 0 09/01/2021 Active lisinopril (PRINIVIL,ZESTRIL) tablet 40 mg Take 40 mg by mouth daily. 0 09/01/2021 Active metFORMIN (GLUCOPHAGE) tablet 500 mg 1 tab every morning, 2 tabs every evening 0 06/03/2021 Active valACYclovir (VALTREX) 1000 MG tablet Take 2,000 mg by mouth. 0 10/13/2020 Active nystatin (nystatin) powder APPLY TWO TIMES A DAY NEEDED FOR RASH 0 10/30/2018 Active glucose blood test strip test blood suar 2-3 times per day. 0 06/08/2017 Active fluticasone (FLONASE) 50 MCG/ACT nasal spray spray or apply 50 mcg inside Nose. 0 03/02/2017 Active ketoconazole (NIZORAL) 2 % shampoo Apply topically. 0 Active aspirin (EQ Aspirin Adult Low Dose) 81 MG EC tablet Take 1 tablet by mouth daily. 0 Active L-Lysine 500 MG TABS Take 1 tablet by mouth daily. 0 Active Social History Tobacco Use Types Packs/Day Years Used Date Smoking Tobacco: Never Smokeless Tobacco: Never Tobacco Cessation:Counseling Given: Not Answered Alcohol Use Standard Drinks/Week Comments Never 0 (1 standard drink = 0.6 oz pur e alcohol) Sex and Gender Information Value Date Recorded Sex Assigned at Female 10/12/2021 2:31 PM EDT Gender Identity Female 10/12/2021 2:31 PM EDT Sexual Orientation Not on file Job Start Date Occupation Industry Not on file Not on file Not on file Last Filed Vital Signs Vital Sign Reading Time Taken Comments Blood Pressure - - Pulse - - Temperature - - Respiratory Rate - - Oxygen Saturation - - Inhaled Oxygen Concentration - - Weight 152.4 kg (336 lb) 06/28/2022 2:49 PM EST Height 190.5 cm (6' 3 ) 06/28/2022 2:49 PM EST Body Mass Index 42 06/28/2022 2:49 PM EST Plan of Treatment Health Maintenance Due Date Last Done Comments Hepatitis C Screening 1957 Depression Screening 1969 BMI Counseling 09/29/1975 Preventative Health Evaluation 09/29/1975 Colon Cancer Screening (Colonoscopy) 2002 Breast Cancer Screening (Mammogram) 09/29/2007 Fall Risk Assessment 2022 Osteoporosis Screening (DEXA Scan) 2022 Pneumococcal Vaccine (2 of 2 - PCV) 2022 02/17/2016, 01/29/2004 COVID-19 Vaccine ( season) 2024 01/12/2022, 02/19/2021, 08/02/2020, Additional history exists Influenza Vaccine (#1) 2024 2, 02/19/2021, 01/03/2020, Additional history exists DTap / Tdap / Td (3 - Td or Tdap) 11/19/2028 11/19/2018, 11/03/2008 RSV Adult > 60+ Yrs or (1 - 1-dose 75+ series) 2032 Shingrix-Zoster Vaccine Completed 06/23/2018, 11/22 Hepatitis B Vaccines Aged Out No long er eligible based on patient's age to complete this topic RSV Ped < 20 months Aged Out No longe r eligible based on patient's age to complete this topic Care Teams Supervisor Fertilizer Relationship Specialty Start Date End Date Kia Trejo DO [address] [place] [address] PCP - General Family Medicine 02/22/22
--- OUTSIDE RECORDS SUMMARY | 2025-02-18 19:33 | XMS_ITS | Encounter Summary ---
Author Organization [facility] [place] [address] Care Team Providers Care Membership Correspondent Name Role Phone Clemente Preston MD Primary Care Provider [phone] Encounter Details Date Type Department Care Team (Late st Contact Info) Description 04/26/2024 Lab Requisition [facility] - Main Lab 299 [facility] [place] [address] Carolyn Zuleta MD [address] [place] [address] Encounter for other general examination Social History [...] your loved ones. For example, early childhood teacher or elderly care for an older [...] 10:30 AM EST Office Visit Pulmonology - [address] [phone] Meche Verma MD [address] [place] [phone] 03/14/2025 11:30 AM EST Office Visit Endocrinology - [address] [address] Kylah Barnett MD [address] [place] [address] 03/27/2025 3:00 PM EST Office Visit [facility] - [facility] 154 [address] [facility] 154 [place] [phone] Hill Box MD [address] [place] [address] [place] [phone] 05/13/2025 11:00 AM EST Office Visit Internal Medicine - [place] 175 [facility] 200 [place] [phone] Clemente Preston MD [address] [place] [phone] 09/29/2025 2:30 PM EDT Office Visit [facility] Hematology Oncology [address] [place] [address] Regine Briseno MD [address] [place] [address] 12/22/2025 9:45 AM EDT Appointment [facility] [address] [place] [address] documented as of this encounter Procedures Procedure Name Priority Date/Time Associated Diagnosis Comments CORTISOL Routine 04/26/2024 5:18 AM EST Encounter for other general examination COMPREHENSIVE METABOLIC PANEL Routine 04/26/2024 5:18 AM EST Encounter for other general examination documented in this encounter Results * Cortisol (04/26/2024 5:18 AM EST) Cortisol 22.0 mcg/dL LAB CHEMISTRY METHOD 04/26/2024 9:[address] [facility] Blood Venous blood specimen / Unknown Venipuncture / Unknown 04/26/2024 5:18 AM EST 04/26/2024 8:[address] [facility] - 04/26/2024 9:44 AM EST CORTISOL REFERENCE RANGE 8 AM SPEC: 5.0-23.0 mcg/dL 4 PM SPEC: 3.0-16.0 mcg/dL 8 PM SPEC: <5.0 mcg/dL us Carolyn Zuleta MD LAB BLOOD ORDERABLES Final Resu lt [facility] [address] [place] [address], * (ABNORMAL) Comprehensive metabolic panel (04/26/2024 5:18 AM EST) Sodium 137 133 - 145 mmol/L LAB CHEMISTRY METHOD 04/26/2024 9:49 AM [facility] Potassium 4.8 3.5 - 5.5 mmol/L LAB CHEMISTRY METHOD 04/26/2024 9:49 AM [facility] Chloride 103 96 - 110 mmol/L LAB CHEMISTRY METHOD 04/26/2024 9:49 AM [facility] CO2 28 21 - 32 mmol/L LAB CHEMISTRY METHOD 04/26/2024 9:49 AM [facility] Anion Gap 6 3 - 11 LAB CHEMISTRY METHOD 04/26/2024 9:49 AM [facility] Glucose 92 70 - 100 mg/dL LAB CHEMISTRY METHOD 04/26/2024 9:49 AM [facility] BUN 41(H) 5 - 25 mg/dL LAB CHEMISTRY METHOD 04/26/2024 9:49 AM [facility] Creatinine 1.18(H) 0.50 - 1.10 mg/dL LAB CHEMISTRY METHOD 04/26/2024 9:49 AM [facility] eGFR 51(L) >=60 mL/min/1. 73m2 LAB CHEMISTRY METHOD 04/26/2024 9:49 AM [facility] Comment:Calculation based on the Chronic Kidney Disease Epidemiology Collaboration (CKD-EPI) equation refit without adjustment for race. BUN/Creatinine Ratio 34.7 LAB CHEMISTRY METHOD 04/26/2024 9:49 AM [facility] Calcium 10.5 8.5 - 10.5 mg/dL LAB CHEMISTRY METHOD 04/26/2024 9:49 AM [facility] AST (SGOT) 78(H) 10 - 42 unit/L LAB CHEMISTRY METHOD 04/26/2024 9:49 AM [facility] ALT (SGPT) 135(H) 10 - 60 unit/L LAB CHEMISTRY METHOD 04/26/2024 9:[address] [facility] Alkaline Phosphatase 139(H) 42 - 121 unit/L LAB CHEMISTRY METHOD 04/26/2024 9:49 AM [facility] Total Protein 6.4 6.0 - 8.0 g/dL LAB CHEMISTRY METHOD 04/26/2024 9:49 AM [facility] Albumin 2.9(L) 3.2 - 5.0 g/dL LAB CHEMISTRY METHOD 04/26/2024 9:49 AM [facility] Total Bilirubin 0.4 0.0 - 1.4 mg/dL LAB CHEMISTRY METHOD 04/26/2024 9:49 AM [facility] Blood Venous blood specimen / Unknown Venipuncture / Unknown 04/26/2024 5:18 AM EST 04/26/2024 8:25 AM EST us Carolyn Zuleta MD LAB BLOOD ORDERABLES Final Resu lt [facility] [address] [place] [address], documented in this encounter Visit Diagnoses Diagnosis Encounter for other general examination Encounter for screening mammogram for breast cancer documented in this encounter Care Teams Membership Correspondent Relationship Specialty Start Date End Date Clemente Preston MD [address] [address] PCP - General 11/13/23 documented as of this encounter
--- OUTSIDE RECORDS SUMMARY | 2025-02-18 19:33 | XMS_ITS | Encounter Summary ---
Author Organization [facility] [place] [address] Care Team Providers Care Endoscopy Technican Name Role Phone Clemente Preston MD Primary Care Provider [phone] Encounter Details Date Type Department Care Team (Late st Contact Info) Description 04/30/2024 Lab Requisition [facility] - Main Lab 299 [facility] [place] [address] Carolyn Zuleta MD [address] [place] [address] Encounter for other general examination Social History [...] for your loved ones. For example, child watch attendant or elderly care for an older adult? [...] 10:30 AM EST Office Visit Pulmonology - [address] [phone] Meche Verma MD [address] [place] [phone] 03/14/2025 11:30 AM EST Office Visit Endocrinology - [address] [phone] Kylah Barnett MD [address] [place] [address] 03/27/2025 3:00 PM EST Office Visit [facility] - [facility] 154 300 [facility] 154 [place] [phone] Hill Box MD [address] [place] [address] [place] [phone] 05/13/2025 11:00 AM EST Office Visit Internal Medicine - [place] 175 [facility] 200 [place] [phone] Clemente Preston MD [address] [place] [phone] 09/29/2025 2:30 PM EDT Office Visit [facility] Hematology Oncology [address] [place] [phone] Regine Briseno MD [address] [place] [address] 12/22/2025 9:45 AM EDT Appointment [facility] at [address] [phone] documented as of this encounter Procedures Procedure Name Priority Date/Time Associated Diagnosis Comments CBC WITH AUTO DIFFERENTIAL Routine 04/30/2024 5:17 AM EST Encounter for other general examination CBC AND DIFFERENTIAL Routine 04/30/2024 5:17 AM EST Encounter for other general examination MAGNESIUM Routine 04/30/2024 5:17 AM EST Encounter for other general examination COMPREHENSIVE METABOLIC PANEL Routine 04/30/2024 5:17 AM EST Encounter for other general examination documented in this encounter Results * (ABNORMAL) CBC auto differential (04/30/2024 5:17 AM EST) WBC 6.6 4.8 - 10.8 K/mcL LAB HEMETOLOGY METHOD 04/30/2024 11:26 AM EST [facility] RBC 4.10 3.80 - 4.80 M/mcL LAB HEMETOLOGY METHOD 04/30/2024 11:26 AM EST [facility] Hemoglobin 11.7 11.5 - 16.0 g/dL LAB HEMETOLOGY METHOD 04/30/2024 11:26 AM EST [facility] Hematocrit 36.4 35.0 - 47.0 % LAB HEMETOLOGY METHOD 04/30/2024 11:26 AM [facility] MCV 89.4 79.0 - 98.0 FL LAB HEMETOLOGY METHOD 04/30/2024 11:26 AM [facility] MCH 28.7 27.0 - 32.0 pcg LAB HEMETOLOGY METHOD 04/30/2024 11:26 AM [facility] MCHC 32.1 32.0 - 37.0 g/dL LAB HEMETOLOGY METHOD 04/30/2024 11:26 AM [facility] RDW 13.4 11.0 - 15.0 % LAB HEMETOLOGY METHOD 04/30/2024 11:26 AM [facility] Platelets 443(H) 130 - 400 K/mcL LAB HEMETOLOGY METHOD 04/30/2024 11:26 AM [facility] MPV 9.8 7.0 - 11.0 FL LAB HEMETOLOGY METHOD 04/30/2024 11:26 AM [facility] NRBC 0.0 <1.0 % LAB HEMETOLOGY METHOD 04/30/2024 11:26 AM [facility] NRBC Absolute 0.00 <0.10 K/mcL LAB HEMETOLOGY METHOD 04/30/2024 11:26 AM [facility] Neutrophils Relative 64.2 % LAB HEMETOLOGY METHOD 04/30/2024 11:26 AM [facility] Lymphocytes Relative 21.4 % LAB HEMETOLOGY METHOD 04/30/2024 11:26 AM [facility] Monocytes Relative 10.7 % LAB HEMETOLOGY METHOD 04/30/2024 11:26 AM [facility] Eosinophils Relative 2.0 % LAB HEMETOLOGY METHOD 04/30/2024 11:26 AM [facility] Basophils Relative 0.9 % LAB HEMETOLOGY METHOD 04/30/2024 11:26 AM [facility] Immature Granulocytes Relative 0.8 % LAB HEMETOLOGY METHOD 04/30/2024 11:26 AM [facility] Neutrophils Absolute 4.21 1.50 - 7.00 K/[facility] LAB HEMETOLOGY METHOD 04/30/2024 11:26 AM [facility] Lymphocytes Absolute 1.40 1.00 - 5.00 K/[facility] LAB HEMETOLOGY METHOD 04/30/2024 11:26 AM [facility] Monocytes Absolute 0.70 0.20 - 1.00 K/[facility] LAB HEMETOLOGY METHOD 04/30/2024 11:26 AM [facility] Eosinophils Absolute 0.13 0.00 - 0.50 K/[facility] LAB HEMETOLOGY METHOD 04/30/2024 11:26 AM [facility] Basophils Absolute 0.06 0.00 - 0.20 K/[facility] LAB HEMETOLOGY METHOD 04/30/2024 11:26 AM [facility] Immature Granulocytes Absolute 0.05(H) 0.00 - 0.03 K/mcL LAB HEMETOLOGY METHOD 04/30/2024 11:26 AM [facility] Blood Venous blood specimen / Unknown Venipuncture / Unknown 04/30/2024 5:17 AM EST 04/30/2024 10:18 AM EST us Carolyn Zuleta MD LAB BLOOD ORDERABLES Final Resu lt [facility] [address] [place] [address], * Magnesium (04/30/2024 5:17 AM EST) Magnesium 1.9 1.9 - 2.6 mg/dL LAB CHEMISTRY METHOD 04/30/2024 12:18 PM EST [facility] Blood Venous blood specimen / Unknown Venipuncture / Unknown 04/30/2024 5:17 AM EST 04/30/2024 10:18 AM EST us Carolyn Zuleta MD LAB BLOOD ORDERABLES Final Resu lt [facility] [address] [place] [address], [place] [phone] * (ABNORMAL) Comprehensive metabolic panel (04/30/2024 5:17 AM EST) Pathologist [facility] Sodium 138 133 - 145 mmol/L LAB CHEMISTRY METHOD 04/30/2024 12:19 PM [facility] Potassium 4.7 3.5 - 5.5 mmol/L LAB CHEMISTRY METHOD 04/30/2024 12:19 PM [facility] Chloride 104 96 - 110 mmol/L LAB CHEMISTRY METHOD 04/30/2024 12:19 PM [facility] CO2 25 21 - 32 mmol/L LAB CHEMISTRY METHOD 04/30/2024 12:19 PM [facility] Anion Gap 9 3 - 11 LAB CHEMISTRY METHOD 04/30/2024 12:19 PM [facility] Glucose 102(H) 70 - 100 mg/dL LAB CHEMISTRY METHOD 04/30/2024 12:19 PM [facility] BUN 27(H) 5 - 25 mg/dL LAB CHEMISTRY METHOD 04/30/2024 12:19 PM [facility] Creatinine 0.95 0.50 - 1.10 mg/dL LAB CHEMISTRY METHOD 04/30/2024 12:19 PM [facility] eGFR 66 >=60 mL/min/1. 73m2 LAB CHEMISTRY METHOD 04/30/2024 12:19 PM [facility] Comment:Calculation based on the Chronic Kidney Disease Epidemiology Collaboration (CKD-EPI) equation refit without adjustment for race. BUN/Creatinine Ratio 28.4 LAB CHEMISTRY METHOD 04/30/2024 12:19 PM [facility] Calcium 9.4 8.5 - 10.5 mg/dL LAB CHEMISTRY METHOD 04/30/2024 12:19 PM [facility] AST (SGOT) 41 10 - 42 unit/L LAB CHEMISTRY METHOD 04/30/2024 12:19 PM [facility] ALT (SGPT) 78(H) 10 - 60 unit/L LAB CHEMISTRY METHOD 04/30/2024 12:19 PM [facility] Alkaline Phosphatase 108 42 - 121 unit/L LAB CHEMISTRY METHOD 04/30/2024 12:19 PM [facility] Total Protein 6.0 6.0 - 8.0 g/dL LAB CHEMISTRY METHOD 04/30/2024 12:19 PM [facility] Albumin 2.9(L) 3.2 - 5.0 g/dL LAB CHEMISTRY METHOD 04/30/2024 12:19 PM [facility] Total Bilirubin 0.3 0.0 - 1.4 mg/dL LAB CHEMISTRY METHOD 04/30/2024 12:19 PM [facility] Blood Venous blood specimen / Unknown Venipuncture / Unknown 04/30/2024 5:17 AM EST 04/30/2024 10:18 AM EST us Carolyn Zuleta MD LAB BLOOD ORDERABLES Final Resu lt [facility] [address] [place] [address], [place] [phone] documented in this encounter Visit Diagnoses Diagnosis Encounter for other general examination Encounter for screening mammogram for breast cancer documented in this encounter Care Teams Endoscopy Technican Relationship Specialty Start Date End Date Clemente Preston MD [address] [address] PCP - General 11/13/23 documented as of this encounter
--- OUTSIDE RECORDS SUMMARY | 2025-02-18 19:33 | XMS_ITS | Encounter Summary ---
Author Organization [facility] Address [address] [place] [address] Care Team Providers Care Conche Loader And Unloader Name Role Phone Clemente Preston MD Primary Care Provider [phone] Encounter Details Date Type Department Care Team (Late st Contact Info) Description 01/21/2025 Results Follow-Up Internal Medicine - [place] [address] [facility] [address] [place] [address] Aleks Penn MA Social History Tobacco Use Types Packs/Day Years [...] for your loved ones. For example, child day care teacher or elderly care for an older [...] Assessment Author No 03/30/2024 5:20 AM Sabiha Matthews, RN * Do you have serious difficulty [...] 10:30 AM EST Office Visit Pulmonology - [address] [place] [phone] Meche Verma MD [address] [place] [phone] 03/14/2025 11:30 AM EST Office Visit Endocrinology - [place] [address] [place] [phone] Kylah Barnett MD [address] [place] [address] 03/27/2025 3:00 PM EST Office Visit [facility] - [facility] 154 300 [facility] 154 [place] [phone] Hill Box MD [address] [place] [address] [place] [phone] 05/13/2025 11:00 AM EST Office Visit Internal Medicine - [place] [address] [facility] 200 [place] [phone] Clemente Preston MD [address] [place] [phone] 09/29/2025 2:30 PM EDT Office Visit [facility] Hematology Oncology [address] [place] [address] Regine Briseno MD [address] [place] [address] 12/22/2025 9:45 AM EDT Appointment [facility] at [address] [phone] documented as of this encounter Visit Diagnoses Not on filedocumented in this encounter Additional Health Concerns Assessment Noted Time PHQ-9 Depression Total Score: 0 11/03/19 25 12:33 PM EDT documented as of this encounter Care Teams Conche Loader And Unloader Relationship Specialty Start Date End Date Clemente Preston MD [address] [address] PCP - General 11/13/23 documented as of this encounter
--- OUTSIDE RECORDS SUMMARY | 2025-02-18 19:33 | XMS_ITS | Encounter Summary ---
Author Organization [facility] [place] [address] Care Team Providers Care Sizing Machine Operator Name Role Phone Clemente Preston MD Primary Care Provider [phone] Encounter Details Date Type Department Care Team ([facility] st Contact Info) Description 04/22/[address] [facility] - Main Lab [address] [facility] [place] [address] Carolyn Zuleta MD [address] [place] [phone] Encounter for other general examination Social History [...] your loved ones. For example, child care cook or elderly care for an older adult? [...] 10:30 AM EST Office Visit Pulmonology - [address] [phone] Meche Verma MD [address] [place] [phone] 03/14/2025 11:30 AM EST Office Visit Endocrinology - [address] [phone] Kylah Barnett MD [address] [place] [phone] 03/27/2025 3:00 PM EST Office Visit [facility] 154 [address] [facility] 154 [place] [phone] Hill Box MD [address] [place] [address] [place] [phone] 05/13/2025 11:00 AM EST Office Visit Internal Medicine - [place] 175 [facility] 200 [place] [phone] Clemente Preston MD [address] [place] [phone] 09/29/2025 2:30 PM EDT Office Visit [facility] Hematology Oncology [address] [place] [phone] Regine Briseno MD [address] [place] [phone] 12/22/2025 9:45 AM EDT Appointment [facility] at [address] [phone] documented as of this encounter Procedures Procedure Name Priority Date/Time Associated Diagnosis Comments CBC WITH AUTO DIFFERENTIAL Routine 04/22/2024 7:05 AM EST Encounter for other general examination CBC AND DIFFERENTIAL Routine 04/22/2024 7:05 AM EST Encounter for other general examination MAGNESIUM Routine 04/22/2024 7:05 AM EST Encounter for other general examination COMPREHENSIVE METABOLIC PANEL Routine 04/22/2024 7:05 AM EST Encounter for other general examination documented in this encounter Results * (ABNORMAL) CBC auto differential (04/22/2024 7:05 AM EST) WBC 10.4 4.8 - 10.8 K/mcL LAB HEMETOLOGY METHOD 04/22/2024 9:50 AM EST [facility] RBC 4.10 3.80 - 4.80 M/mcL LAB HEMETOLOGY METHOD 04/22/2024 9:50 AM EST [facility] Hemoglobin 11.8 11.5 - 16.0 g/dL LAB HEMETOLOGY METHOD 04/22/2024 9:50 AM EST [facility] Hematocrit 38.0 35.0 - 47.0 % LAB HEMETOLOGY METHOD 04/22/2024 9:50 AM [facility] MCV 92.5 79.0 - 98.0 FL LAB HEMETOLOGY METHOD 04/22/2024 9:50 AM [facility] MCH 28.7 27.0 - 32.0 pcg LAB HEMETOLOGY METHOD 04/22/2024 9:50 AM [facility] MCHC 31.1(L) 32.0 - 37.0 g/dL LAB HEMETOLOGY METHOD 04/22/2024 9:50 AM [facility] RDW 13.6 11.0 - 15.0 % LAB HEMETOLOGY METHOD 04/22/2024 9:50 AM [facility] Platelets 265 130 - 400 K/mcL LAB HEMETOLOGY METHOD 04/22/2024 9:50 AM [facility] MPV 10.8 7.0 - 11.0 FL LAB HEMETOLOGY METHOD 04/22/2024 9:50 AM [facility] NRBC 0.0 <1.0 % LAB HEMETOLOGY METHOD 04/22/2024 9:50 AM [facility] NRBC Absolute 0.00 <0.10 K/mcL LAB HEMETOLOGY METHOD 04/22/2024 9:50 AM [facility] Neutrophils Relative 76.1 % LAB HEMETOLOGY METHOD 04/22/2024 9:50 AM [facility] Lymphocytes Relative 12.5 % LAB HEMETOLOGY METHOD 04/22/2024 9:[address] [facility] Monocytes Relative 9.6 % LAB HEMETOLOGY METHOD 04/22/2024 9:50 AM [facility] Eosinophils Relative 1.0 % LAB HEMETOLOGY METHOD 04/22/2024 9:50 AM [facility] Basophils Relative 0.4 % LAB HEMETOLOGY METHOD 04/22/2024 9:50 AM EST [facility] Immature Granulocytes Relative 0.4 % LAB HEMETOLOGY METHOD 04/22/2024 9:50 AM EST [facility] Neutrophils Absolute 7.92(H) 1.50 - 7.00 K/mcL LAB HEMETOLOGY METHOD 04/22/2024 9:50 AM EST [facility] Lymphocytes Absolute 1.30 1.00 - 5.00 K/mcL LAB HEMETOLOGY METHOD 04/22/2024 9:50 AM EST [facility] Monocytes Absolute 1.00 0.20 - 1.00 K/[facility] LAB HEMETOLOGY METHOD 04/22/2024 9:50 AM EST [facility] Eosinophils Absolute 0.10 0.00 - 0.50 K/mcL LAB HEMETOLOGY METHOD 04/22/2024 9:50 AM EST [facility] Basophils Absolute 0.04 0.00 - 0.20 K/mcL LAB HEMETOLOGY METHOD 04/22/2024 9:50 AM EST [facility] Immature Granulocytes Absolute 0.04(H) 0.00 - 0.03 K/mcL LAB HEMETOLOGY METHOD 04/22/2024 9:50 AM EST [facility] Blood Venous blood specimen / Unknown Venipuncture / Unknown 04/22/2024 7:05 AM EST 04/22/2024 8:49 AM EST us Carolyn Zuleta MD LAB BLOOD ORDERABLES Final Resu lt [facility]) [facility] [address] [place] [address], * Magnesium (04/22/2024 7:05 AM EST) Magnesium 2.1 1.9 - 2.6 mg/dL LAB CHEMISTRY METHOD 04/22/2024 10:06 AM EST [facility] Blood Venous blood specimen / Unknown Venipuncture / Unknown 04/22/2024 7:05 AM EST 04/22/2024 8:49 AM EST us Carolyn Zuleta MD LAB BLOOD ORDERABLES Final Resu lt [facility] [address] [place] [address], [place] [phone] * (ABNORMAL) Comprehensive metabolic panel (04/22/2024 7:05 AM EST) Sodium 138 133 - 145 mmol/L LAB CHEMISTRY METHOD 04/22/2024 10:24 AM [facility] Potassium 4.1 3.5 - 5.5 mmol/L LAB CHEMISTRY METHOD 04/22/2024 10:24 AM [facility] Chloride 104 96 - 110 mmol/L LAB CHEMISTRY METHOD 04/22/2024 10:24 AM [facility] CO2 27 21 - 32 mmol/L LAB CHEMISTRY METHOD 04/22/2024 10:24 AM [facility] Anion Gap 7 3 - 11 LAB CHEMISTRY METHOD 04/22/2024 10:24 AM [facility] Glucose 112(H) 70 - 100 mg/dL LAB CHEMISTRY METHOD 04/22/2024 10:24 AM [facility] BUN 27(H) 5 - 25 mg/dL LAB CHEMISTRY METHOD 04/22/2024 10:24 AM [facility] Creatinine 1.07 0.50 - 1.10 mg/dL LAB CHEMISTRY METHOD 04/22/2024 10:24 AM [facility] eGFR 57(L) >=60 mL/min/1. 73m2 LAB CHEMISTRY METHOD 04/22/2024 10:24 AM [facility] Comment:Calculation based on the Chronic Kidney Disease Epidemiology Collaboration (CKD-EPI) equation refit without adjustment for race. BUN/Creatinine Ratio 25.2 LAB CHEMISTRY METHOD 04/22/2024 10:24 AM [facility] Calcium 9.3 8.5 - 10.5 mg/dL LAB CHEMISTRY METHOD 04/22/2024 10:24 AM [facility] AST (SGOT) 108(H) 10 - 42 unit/L LAB CHEMISTRY METHOD 04/22/2024 10:24 AM [facility] Comment:Results verified by repeat testing ALT (SGPT) 79(H) 10 - 60 unit/L LAB CHEMISTRY METHOD 04/22/2024 10:24 AM [facility] Comment:Results verified by repeat testing Alkaline Phosphatase 97 42 - 121 unit/L LAB CHEMISTRY METHOD 04/22/2024 10:24 AM [facility] Total Protein 6.0 6.0 - 8.0 g/dL LAB CHEMISTRY METHOD 04/22/2024 10:24 AM [facility] Albumin 2.8(L) 3.2 - 5.0 g/dL LAB CHEMISTRY METHOD 04/22/2024 10:24 AM [facility] Total Bilirubin 0.6 0.0 - 1.4 mg/dL LAB CHEMISTRY METHOD 04/22/2024 10:24 AM [facility] Blood Venous blood specimen / Unknown Venipuncture / Unknown 04/22/2024 7:05 AM EST 04/22/2024 8:49 AM EST us Carolyn Zuleta MD LAB BLOOD ORDERABLES Final Resu lt [facility] [address] [place] [address], documented in this encounter Visit Diagnoses Diagnosis Encounter for other general examination Encounter for screening mammogram for breast cancer documented in this encounter Care Teams Sizing Machine Operator Relationship Specialty Start Date End Date Clemente Preston MD [address] [address] PCP - General 11/13/23 documented as of this encounter
== END 2025-02-18 15:54 | disposition home or self-care (01) ==
LOC: HO.HKAS 15:06
PROVIDERS: PCP Internal Medicine; Referring Provider Internal Medicine; Visit Provider Internal Medicine Nephrology
DX: I10 Essential (primary) hypertension (principal)
CPT/HCPCS: 99204

== ENCOUNTER → 2025-02-18 15:05 | Outpatient (BNVA) | payer MEDICARE, BC, SELFPAY | PROVIDERS: PCP Internal Medicine; Referring Provider Internal Medicine; Visit Provider Internal Medicine Nephrology | DX: I10 Essential (primary) hypertension (principal); Z79.899 Other long term (current) drug therapy | CPT/HCPCS: 99202 ==

== ENCOUNTER 2025-04-03 10:53 | Outpatient (AMB) | payer MEDICARE, BC, SELFPAY ==
--- NOTE | 2025-04-03 11:25 | HO.NEPHOV ---
Vital Signs 04/03/25 11:26 Height 6 ft 1.5 in Weight 321 lb 6 oz BMI 41.8 BP 142/82 H Blood Pressure Location Rt brachial Position Sitting Pulse 69 Pulse Source Pulse Oximeter Pulse Oximetry (%) 96 Oxygen Delivery Method Room Air Intake Visit Reasons: 6wks f/u w/labs-LVM Car Coupler Required: No Accompanied by: Self / Same As Patient Allergies cyclobenzaprine (From Flexeril) Allergy (Verified 04/03/25 11:) Diarrhea ibuprofen Allergy (Verified 04/03/25 11:) Hypertension HPI Comments Details: I had the pleasure of seeing Marie in follow up for labile hypertension. She is 69 is of age and has been hypertension for over 25 years . She is on amlodipine, labetalol as well as lisinopril. She does not have any hypokalemia or renal dysfunction. She has high BMI and has sleep apnea. She is not known to have any coronary artery disease, congestive heart failure, CVA, carotid stenosis, edema, proteinuria, peripheral arterial disease. She is not very good with low-sodium diet and does not take any nonsteroidal anti-inflammatories. She maintains good hydration. She has history of renal calculus as well as paroxysmal supraventricular tachycardia. Her BP control is better since she has been initiated on Spironolactone. She has H/O PE & DVT and is on anticoagulation [facility] Medical History (Updated 02/18/25 @ 15:28 by Andrea Land MD) Hypertension Depression Asthma Paroxysmal supraventricular tachycardia Mixed hyperlipidemia DM (diabetes mellitus) type II controlled with renal manifestation JOSÉ ANTONIO (obstructive sleep apnea) Allergic rhinitis Altered sensation of foot Calculus of kidney Fatty liver disease, nonalcoholic Anatomical narrow angle Spasmodic dysphonia Gout of foot Bilateral pulmonary embolism Surgical History Status post hysteroscopic ablation of endometrium History of radial keratotomy H/O eye surgery H/O colonoscopy Hx of cholecystectomy History of ankle surgery Social History Alcohol intake: never Patient Tobacco Use Status: Never used Tobacco Review of Systems Const All systems reviewed & are unremarkable except as noted in HPI and below Physical Exam Vital Signs: Last Vital Signs Pulse 69 04/03/25 11: BP 142/82 H 04/03/25 11:26 Pulse Ox 96 12/11/25 11:26 Oxygen Delivery Method Room Air 04/03/25 11:26 BMI result Body Mass Index 41.8 Const General: comfortable and no acute distress Orientation/consciousness: patient oriented x3 HEENT Head: Yes normocephalic Mouth: Normal oral and palatal mucosa present Eyes EOM: EOMs intact bilaterally Neck Neck: Yes supple Resp Auscultation: clear to auscultation bilaterally Cardio Jugular venous distension: no JVD Rate: regular rate GI Palpation (GI): Soft to palpation Auscultation: normal bowel sounds General: Yes no CVA tenderness Back/Spine/Pelvis Back: no CVA tenderness Skin General skin exam: no rashes or lesions noted Neuro General: patient oriented x3 and moves all extremities Extrem General: Yes no pedal edema Assessment & Plan Assessment & Plan (1) Hypertension: Code(s): I10 - Essential (primary) hypertension Category: Medical Qualifiers: Hypertension type: primary hypertension Qualified Code(s): I10 - Essential (primary) hypertension Plan Life style modifications and weight loss Low sodium diet ; C/W CPAP for JOSÉ ANTONIO C/W Spironolactone 25 mg daily C/W rest of current BP medications for now Will do a 24 hr BP and renal Doppler later Unlikely that she has secondary HTN Will continue optimize medications with evol data F/U labs ordered and answered all questions Orders: Orders Electrolytes 4 Weeks I10 - Essential (primary) hypertension Blood Urea Nitrogen 4 Weeks I10 - Essential (primary) hypertension Creatinine 4 Weeks I10 - Essential (primary) hypertension Medications: Changed From spironolactone 25 mg PO DAILY 90 tabs 3RF To spironolactone 50 mg PO DAILY 90 tabs 3RF Coding Level of Care Code Est Pt Level 4 (73910) Diagnoses Primary hypertension I10 Hypertension type: primary hypertension
[2025-04-03 11:26] VITALS: BP 142/82; PULSE 69; O2SAT 96; BMI 41.8
== END 2025-04-03 11:39 | disposition home or self-care (01) ==
LOC: HO.HKAS 10:54
PROVIDERS: PCP Internal Medicine; Visit Provider Internal Medicine Nephrology
DX: I10 Essential (primary) hypertension (principal)
CPT/HCPCS: 99214

== ENCOUNTER → 2025-04-03 10:53 | Outpatient (BNVA) | payer MEDICARE, BC, SELFPAY | PROVIDERS: PCP Internal Medicine; Visit Provider Internal Medicine Nephrology | DX: I10 Essential (primary) hypertension (principal); G47.33 Obstructive sleep apnea (adult) (pediatric); E66.9 Obesity, unspecified | CPT/HCPCS: 99212 ==